=== PATIENT | female | born 1930 | race Caucasian/White ===

== ENCOUNTER 2017-10-09 12:13 | Inpatient (IN) ==
[2017-10-09] MEDS ORDERED: SALINE FLUSH 10ml SYRINGE IVF PRN (12:34)
--- NOTE | 2017-10-09 12:36 | Emergency Department Report ---
General Adult HPI - General Chief complaint: Upper Respiratory Infection Stated complaint: cough fever unresponsive Time Seen by Provider: 10/09/17 12:33 Source: other ([place] Staff / Records) Limitations: altered mental status - History of Present Illness HPI narrative: 87-year-old female presents to the emergency department with a chief complaint of fever and cough. Patient is responsive only to painful and loud verbal stimuli upon arrival to the emergency department. Accu-Chek is obtained and patient's blood glucose is 52 mg/dL. Patient is protecting her own airway. Gag reflex is intact. History is obtained from the snf staff and records. History is limited due to the medical condition of the patient. - Related Data Home Medications Medication Instructions Recorded Confirmed Atorvastatin [Lipitor] 40 mg PO HS #0 06/18/10 10/09/17 Levothyroxine Tab [Synthroid] 100 mcg PO ACB #0 06/18/10 10/09/17 Gabapentin 300 mg PO HS #0 11/26/15 10/09/17 hydroCHLOROthiazide 25 mg PO DAILY #0 11/26/15 10/09/17 [Hydrochlorothiazide] Acetaminophen 650 mg PO Q4H PRN #0 tab 12/12/15 10/09/17 Insulin Lispro [HumaLOG] 8 unit SQ PRN PRN #0 12/13/15 10/09/17 Dextran 70/Hypromellose 1 drop BOTH EYES PRN PRN #15 ml 02/11/16 10/09/17 [Artificial Tears Eye Drops] Sennosides/Docusate Sodium [Sm 1 tab PO BID #0 tab 02/11/16 10/09/17 Senna-S Tablet] Insulin Glargine,Hum.rec.anlog 62 unit SQ BID #0 vial 07/27/16 10/09/17 [Lantus] Nitroglycerin 0.4 mg SL Q5MIN3 PRN #0 tab 07/27/16 10/09/17 Active Protein 1 packet PO BID 10/09/17 10/09/17 Albuterol/Ipratropium [Duoneb] 3 ml AEROSOL Q4H PRN 10/09/17 10/09/17 Allopurinol [Zyloprim] 100 mg PO DAILY 10/09/17 10/09/17 Budesonide Inhalation [Pulmicort 0.5 mg INH PRN PRN 10/09/17 10/09/17 Inhalation] CALCIUM CARBONATE Chewable [Tums] 500 mg PO Q4H PRN 10/09/17 10/09/17 Cholecalciferol [Vit. D-3] 1,000 unit PO DAILY 10/09/17 10/09/17 Duloxetine HCl 30 mg PO DAILY 10/09/17 10/09/17 Fruit Fiber 30 ml PO DAILY 10/09/17 10/09/17 Furosemide [Lasix] 40 mg PO DAILY 10/09/17 10/09/17 Glucagon [Glucagen] 1 mg IM PRN PRN 10/09/17 10/09/17 Hydrocodone/APAP 7.5/325 [[place] 1 tab PO Q6H PRN 10/09/17 10/09/17 7.5/325] Insulin Lispro [HumaLOG] 60 unit SQ TIDWM 10/09/17 10/09/17 Losartan Potassium [Cozaar] 50 mg PO DAILY 10/09/17 10/09/17 Magnesium Hydroxide [Milk of 30 ml PO DAILY PRN 10/09/17 10/09/17 Magnesia] Metoprolol Tartrate [Lopressor] 25 mg PO BIDWM 10/09/17 10/09/17 Multivitamin [One Daily] 1 tab PO DAILY 10/09/17 10/09/17 Potassium Chloride [Klor-Con M20] 20 meq PO BID 10/09/17 10/09/17 PredniSONE [Deltasone] 5 mg PO BID 10/09/17 10/09/17 Psyllium [Metamucil] 6 gm PO HS 10/09/17 10/09/17 Rivaroxaban [Xarelto] 20 mg PO DAILY 10/09/17 10/09/17 Sodium Chloride [Saline Nasal Mist] 1 spray VANNESSA PRN PRN 10/09/17 10/09/17 Thiamine [Vitamin B-1] 100 mg PO DAILY 10/09/17 10/09/17 Trifluoperazine [Stelazine] 0.5 mg PO DAILY 10/09/17 10/09/17 guaiFENesin [Guaifenesin] 200 mg PO QID PRN 10/09/17 10/09/17 Allergies Allergy/AdvReac Type Severity Reaction Status Date / Time Sulfa (Sulfonamide Allergy Intermediate RASH Verified 10/09/17 12:29 Antibiotics) JUNE Inhibitors Allergy Unknown Verified 10/09/17 12:29 ARB-Angiotensin Receptor Allergy Unknown Verified 10/09/17 12:29 Antagonist Review of Systems Limitations: ROS unobtainable due to patient's medical condition PFS Patient Stated Medical History Congestive Heart Failure Yes Coronary Artery Disease Yes Hypertension Yes Asthma Yes Diabetes Mellitus Type 2 Yes Osteoarthritis Yes (1) HTN (hypertension) (2) Hypothyroid (3) Anxiety (4) Chronic kidney disease (CKD) Permanent Comment: stage 3 Last Edited By: Gray Spence on Nov 27, 2015 09:23 (5) Closed fracture of right patella (6) Diabetes Surgical History: Right TKA 06/18/2010 Family History: Reviewed and Noncontributory. - Social History Smoking status: Never smoker Substance use type: does not use Alcohol intake frequency: does not drink Physical Exam - Limitations Limitations: altered mental status - General General appearance: in no apparent distress, obtunded (sponsored to loud verbal stimuli or painful stimuli. Meaningful speech is present with loud verbal stimuli. Maintaining own airway. Gag reflex intact.) - Normal Exams: Head:: Normocephalic without trauma Eyes:: Pupils are PERRLA w/ EOMI, No scleral icterus, irritation, or foreign bodies noted ENMT:: No facial trauma, nasal exudates, pharyngeal erythema, or exudates are noted Neck:: Full range of motion, without adenopathy, JVD, bruits or thyromegaly Chest/Respirations:: Clear all zhong (bilateral rhonchi.), with good airflow, and symmetry bilaterally Cardiovascular:: Regular rate and rhythm, without murmur or gallop, Pulses 2+ all extremities, capillary refill, <2 seconds all extremities Abdomen:: Bowel sounds positive, soft, non-tender, non-distended, no hepatosplenomegaly, masses or bruits noted Lymphatic:: No lymphadenopathy, or lymphedema noted Musculoskeletal:: No tenderness, or deformity noted, good range of motion, all extremities Integumentary:: No rashes, hives, or bruising noted, hair and nails, without abnormality Course Vital Signs Temperature 99.8 F 10/09/17 12:20 Pulse Rate 118 H 10/09/17 12:20 Respiratory Rate 24 10/09/17 12:20 Blood Pressure 118/56 10/09/17 12:20 Pulse Oximetry 88 L 10/09/17 12:20 Temperature 97.9 F 10/09/17 15:49 Pulse Rate 114 H 10/09/17 15:49 Respiratory Rate 24 10/09/17 15:49 Blood Pressure 132/65 10/09/17 15:49 Pulse Oximetry 97 10/09/17 15:49 Medical Decision Making - MDM Narrative Medical decision making narrative: Patient was given 1 amp of D50 intravenously upon arrival which improved her blood glucose to 143 mg/dL. Patient is more responsive and responds to loud verbal stimuli opens her eyes and has meaningful speech. Patient is still altered. There is no obvious focal deficit. Patient is given 500 mL normal saline intravenously times one. Septic / AMS workup is initiated and completed. Patient was given 1 g of cefepime intravenously for broad-spectrum coverage. She is discussed with the hospitalist Dr. Manzo and admitted to her service in improved condition. Family arrives at bedside. Family is in agreement with the current plan of management. Patient is a do not resuscitate. Patient is admitted to the service of the hospitalist in improved condition. Family is in agreement with the current plan of management. No further orders from accepting physician who is in agreement with the current plan of management. Cefepime 1 g iv was ordered at 1403 when sepsis was considered. Patient was never hypotensive and did not have a lactic acid greater than 4 in the emergency department. - Differential Diagnosis hypoglycemia, UTI, metabolic derangement, pneumonia, influenza - Lab Data Result diagrams: 10/09/17 12:37 10/09/17 12:37 Lab Results 10/09/17 10/09/17 10/09/17 Range/Units 12:37 12:37 12:37 WBC 17.5 H (4.5-11.0) T/MM3 RBC 3.44 L (4.00-5.20) M/MM3 Hgb 10.1 L (12-16) GM/DL Hct 33.4 L (36-46) % MCV 97.1 (80-100) UM3 MCH 29.4 (26-34) UUG MCHC 30.2 L (31-37) GM/DL RDW Std Deviation 53.1 H (36.9-50.2) FL Plt Count 222 (130-400) T/MM3 MPV 12.3 (9.4-12.4) UM3 Immature Gran % (Auto) Not performed Neut % (Auto) Not performed Lymph % (Auto) Not performed [place] % (Auto) Not performed Eos % (Auto) Not performed Baso % (Auto) Not performed Neut # (Auto) Not performed Lymph # (Auto) Not performed [place] # (Auto) Not performed Eos # (Auto) Not performed Baso # (Auto) Not performed Abs Immat Gran (auto) Not performed Neutrophils % (Manual) 77.0 H (33-66) % Band Neutrophils % 2.0 (0-6) % Lymphocytes % (Manual) 19.0 L (23-45) % Monocytes % (Manual) 2.0 (0-9.0) % Neutrophils # (Manual) 13.5 H (1.8-7.7) T/MM3 Band Neutrophils # 0.4 T/MM3 Lymphocytes # (Manual) 3.3 (1-4.8) T/MM3 Monocytes # (Manual) 0.4 (0-0.8) T/MM3 Poikilocytosis 1+ Anisocytosis 1+ RBC Morph Comment Abnormal Turbidity < 20 (0-20) Sodium 151 H (134-144) MEQ/L Potassium 5.4 H (3.6-5) MEQ/L Chloride 116 H (98-107) MEQ/L Carbon Dioxide 23 (22-30) MEQ/L Anion Gap 12 (5-15) MEQ/L BUN 68.0 H* (7-17) MG/DL Creatinine 2.1 H (0.7-1.2) MG/DL GFR Calculation 22 BUN/Creatinine Ratio 32 H (6-26) RATIO Glucose 54 L (65-110) MG/DL Calculated Osmolality 308 H (261-280) MOSM/KG Calcium 9.7 (8.4-10.2) MG/DL Total Bilirubin 0.50 (0.20-1.30) MG/DL Icterus Index < 2 (0-7) AST 55 H (14-36) U/L ALT 49 (9-52) U/L Alkaline Phosphatase 108 (38-126) U/L Troponin I 0.044 (0-0.12) ng/ml Total Protein 7.5 (6.3-8.2) G/DL Albumin 3.8 (3.5-5.0) G/DL Globulin 3.7 H (2.4-3.6) G/DL Albumin/Globulin Ratio 1.0 L (1.1-2.2) RATIO Plasma Lactate 1.8 (0.6-2.2) MMOL/L Procalcitonin NG/ML Specimen Hemolysis < 15 (0-25) Ur Collection Type Urine Color (YELLOW) Urine Clarity Urine pH (5.0-8.0) Ur Specific Almo (1.015-1.025) Urine Protein (NEGATIVE) Urine Glucose (UA) (NEGATIVE) Urine Ketones (NEGATIVE) Urine Occult Blood (NEGATIVE) Urine Nitrate (NEGATIVE) Urine Bilirubin (NEGATIVE) Urine Urobilinogen (NORMAL) EU/DL Ur Leukocyte Esterase (NEGATIVE) Urine RBC (0-3) /HPF Urine WBC (0-5) /HPF Ur Squamous Epith Cells Amorphous Sediment Urine Bacteria (NEGATIVE) Urine Mucus Ur Culture Indicated? Influenza Type A (PCR) (Negative) Influenza Type B (PCR) (Negative) 10/09/17 10/09/17 10/09/17 Range/Units 12:37 12:57 13:42 WBC (4.5-11.0) T/MM3 RBC (4.00-5.20) M/MM3 Hgb (12-16) GM/DL Hct (36-46) % MCV (80-100) UM3 MCH (26-34) UUG MCHC (31-37) GM/DL RDW Std Deviation (36.9-50.2) FL Plt Count (130-400) T/MM3 MPV (9.4-12.4) UM3 Immature Gran % (Auto) Neut % (Auto) Lymph % (Auto) [place] % (Auto) Eos % (Auto) Baso % (Auto) Neut # (Auto) Lymph # (Auto) [place] # (Auto) Eos # (Auto) Baso # (Auto) Abs Immat Gran (auto) Neutrophils % (Manual) (33-66) % Band Neutrophils % (0-6) % Lymphocytes % (Manual) (23-45) % Monocytes % (Manual) (0-9.0) % Neutrophils # (Manual) (1.8-7.7) T/MM3 Band Neutrophils # T/MM3 Lymphocytes # (Manual) (1-4.8) T/MM3 Monocytes # (Manual) (0-0.8) T/MM3 Poikilocytosis Anisocytosis RBC Morph Comment Turbidity (0-20) Sodium (134-144) MEQ/L Potassium (3.6-5) MEQ/L Chloride (98-107) MEQ/L Carbon Dioxide (22-30) MEQ/L Anion Gap (5-15) MEQ/L BUN (7-17) MG/DL Creatinine (0.7-1.2) MG/DL GFR Calculation BUN/Creatinine Ratio (6-26) RATIO Glucose (65-110) MG/DL Calculated Osmolality (261-280) MOSM/KG Calcium (8.4-10.2) MG/DL Total Bilirubin (0.20-1.30) MG/DL Icterus Index (0-7) AST (14-36) U/L ALT (9-52) U/L Alkaline Phosphatase (38-126) U/L Troponin I (0-0.12) ng/ml Total Protein (6.3-8.2) G/DL Albumin (3.5-5.0) G/DL Globulin (2.4-3.6) G/DL Albumin/Globulin Ratio (1.1-2.2) RATIO Plasma Lactate (0.6-2.2) MMOL/L Procalcitonin 0.42 NG/ML Specimen Hemolysis (0-25) Ur Collection Type Urine, catheter Urine Color Yellow (YELLOW) Urine Clarity Clear Urine pH 5.5 (5.0-8.0) Ur Specific [place]mo 1.020 (1.015-1.025) Urine Protein 1+ A (NEGATIVE) Urine Glucose (UA) Negative (NEGATIVE) Urine Ketones Negative (NEGATIVE) Urine Occult Blood Negative (NEGATIVE) Urine Nitrate Negative (NEGATIVE) Urine Bilirubin Negative (NEGATIVE) Urine Urobilinogen 0.2 (NORMAL) EU/DL Ur Leukocyte Esterase Negative (NEGATIVE) Urine RBC 0-1 (0-3) /HPF Urine WBC 0-1 (0-5) /HPF Ur Squamous Epith Cells 0-5 Amorphous Sediment Few Urine Bacteria 1+ H (NEGATIVE) Urine Mucus Present Ur Culture Indicated? Cult not indicated Influenza Type A (PCR) Negative (Negative) Influenza Type B (PCR) Negative (Negative) - Radiology Data CT head: No acute processes. Chest x-ray: No acute processes. - EKG Data EKG #1 EKG results narrative: Sinus tachycardia. 111 bpm. No STEMI. Nonspecific ST changes. Disposition Clinical Impression: Altered mental status Qualifiers: Altered mental status type: unspecified Qualified Code(s): R41.82 - Altered mental status, unspecified [place]: [place] [facility] [place] Condition: Stable Time of Disposition: 14:00 (Admit. Dr. Manzo. ) - Seen By: physician
[2017-10-09] MEDS ORDERED: DEXTROSE 50% INJ 50ml VIAL IV ONE (12:42)
--- OUTSIDE RECORDS SUMMARY | 2017-10-09 12:48 | External Medical Summary | Continuity of Care Document ---
:1930 Demographics x Preferred Language Unknown Marital Status Unknown Mormonism Affiliation Unknown Race Unknown Ethnic Group Unknown Author Organization [facility] Allergies There is no data. Medications There is no data. Problems Date Dx Coded Attending Type Code Diagnosis Diagnosed By 01/15/2016 R05 MARC Rodriguez MD 01/18/2016 R05 Ángela MORAES MD, MARC 01/23/2016 R05 Cough TERI MÉNDEZ MD 01/23/2016 R09.82 Postnasal drip TERI MÉNDEZ MD 01/23/2016 R05 Cough Lindsey Ch 01/23/2016 R09.82 Postnasal drip Dima, Lindsey Procedures Code Description [place] [address] Subsequent TERI MÉNDEZ MD 02/19/2016 hospital care, per day, for the evaluation [place], [place] [address] Subsequent Lindsey Ch 02/19/2016 hospital care, per day, for the evaluation [place] [address] Initial ALEISHA DUVALL, MARC 02/26/2016 hospital care, per day, for the evaluation and management of a patient, which requires these [id number] Subsequent ALEISHA DUVALL, MARC 02/26/2016 hospital care, per day, for the evaluation [place], [place] [address] Subsequent MARC MORAES MD 02/26/2016 hospital care, per day, for the evaluation [place], [place] [address] Subsequent TERI MÉNDEZ MD 02/26/2016 hospital care, per day, for the evaluation [place] [address] Subsequent Lindsey Ch 02/26/2016 hospital care, per day, for the evaluation and management of a patient, which requires at Results There is no data. Encounters ACCT No. Visit Discharge Status Pt. Type Provider Facility Loc./Unit Complaint Date/Time [id number] 02/25/2016 02/25/2016 CLS Outpatient 15:32:00 23:59:59
--- NOTE | 2017-10-09 13:11 | CT Scan Report ---
Indication: AMS PROCEDURE: CT head/brain wo con: Encounter: Initial Comparison: None Technique: Axial CT images through the head were performed without contrast. Iterative Reconstruction dose reducing technique was utilized. FINDINGS: Mild generalized atrophy. The ventricles are of normal size, shape, and contour for the patient's age. Chronic appearing left caudate lacunar infarct. There are scattered areas of low attenuation in the white matter which most likely represent changes from chronic microvascular ischemia. The brainstem, cerebellum, and cerebral hemispheres otherwise have a normal morphology and CT attenuation. There is no evidence of midline displacement. No hemorrhage, signs of acute territorial stroke, mass effect, mass lesions, or edema is evident. The visualized portions of the skull base, midface, and calvarium demonstrate no abnormality. Sinus disease with air-fluid level in the left sphenoid sinus.. The tympanic and mastoid cavities appear normal. IMPRESSION: No acute intracranial abnormality or hemorrhage. Possible acute sinusitis. .
--- NOTE | 2017-10-09 13:14 | XRay Report ---
Indication: cough PROCEDURE: XR chest 1V: Encounter: Initial Comparison: July 27, 2016 Findings: The lungs are stable in appearance without new focal airspace consolidation. There is no pleural effusion or pneumothorax. The heart size, pulmonary vascularity and mediastinal contours are unchanged. IMPRESSION: Stable appearance of the chest without acute cardiopulmonary disease. .
[2017-10-09] MEDS ORDERED: NS 1,000 ML IV ONE (13:23)
[2017-10-09] MEDS ORDERED: CEFEPIME 1 GM in NS 100 ML IV ONE (14:03)
--- NOTE | 2017-10-09 15:13 | History & Physical Report ---
History of Present Illness Date: 10/09/17 Chief complaint: decreased LOC, cough HPI: Nahed is an 87-year-old resident at [facility]. For the past few days she has been less responsive and has had a cough. Today, when patient was mostly unresponsive, EMS was called and patient was brought to [facility] emergency room. Nursing staff reports there has been a lot of respiratory illness at the home. Daughter reports patient was sick the end of August, but after several days of antibiotics, she was much better. Daughter reports that definitely over the past 2 days her mother has been less and less responsive. On admission to ER, patient was found to be hypoxic with oxygen sat of 88% on room air. She was tachycardic and had a fever 99.8. Head CT showed no acute intracranial abnormality or hemorrhage, but did show possible acute sinusitis. Chest x-ray was essentially negative, no sign of pneumonia or pulmonary congestion. Her white blood cell count was elevated at 17.5 with 2% bands. Sodium is elevated at 151 and potassium is elevated at 5.4. She has chronic kidney disease, but creatinine is elevated above baseline at 2.1. (Baseline approximately 1.3.) Negative for influenza. Urinalysis essentially negative. Following evaluation in the emergency room, hospitalist service was contacted and patient was admitted inpatient to the CCU. 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 Rivers-12/04), cholecystectomy, umbilical hernia repair Family History: Father- of [place] Mother-. Heart disease 2 sisters with Alzheimer's Sister-breast cancer Brother-[place] Family History Updates: Updated - Social History Smoking status: Never smoker Substance use type: does not use Alcohol intake frequency: does not drink Housing: retirement ([facility] - full care) Current occupational status: retired Previous occupational history: "farm " Social history: Patient is . Has been at [facility] since November 2015 following the patellar fracture. DPLAURA-H is her daughter, Miranda Gomez Dr Rizvi - PCP Medications Home Medications Medication Instructions Recorded Confirmed Type Atorvastatin [Lipitor] 40 mg PO HS #0 06/18/10 10/09/17 History Levothyroxine Tab [Synthroid] 100 mcg PO ACB #0 06/18/10 10/09/17 History Gabapentin 300 mg PO HS #0 11/26/15 10/09/17 History hydroCHLOROthiazide 25 mg PO DAILY #0 11/26/15 10/09/17 History [Hydrochlorothiazide] Acetaminophen 650 mg PO Q4H PRN #0 tab 12/12/15 10/09/17 History Insulin Lispro [HumaLOG] 8 unit SQ PRN PRN #0 12/13/15 10/09/17 History Dextran 70/Hypromellose 1 drop BOTH EYES PRN PRN #15 ml 02/11/16 10/09/17 History [Artificial Tears Eye Drops] Sennosides/Docusate Sodium [Sm 1 tab PO BID #0 tab 02/11/16 10/09/17 History Senna-S Tablet] Insulin Glargine,Hum.rec.anlog 62 unit SQ BID #0 vial 07/27/16 10/09/17 History [Lantus] Nitroglycerin 0.4 mg SL Q5MIN3 PRN #0 tab 07/27/16 10/09/17 History Active Protein 1 packet PO BID 10/09/17 10/09/17 History Albuterol/Ipratropium [Duoneb] 3 ml AEROSOL Q4H PRN 10/09/17 10/09/17 History Allopurinol [Zyloprim] 100 mg PO DAILY 10/09/17 10/09/17 History Budesonide Inhalation [Pulmicort 0.5 mg INH PRN PRN 10/09/17 10/09/17 History Inhalation] CALCIUM CARBONATE Chewable [Tums] 500 mg PO Q4H PRN 10/09/17 10/09/17 History Cholecalciferol [Vit. D-3] 1,000 unit PO DAILY 10/09/17 10/09/17 History Duloxetine HCl 30 mg PO DAILY 10/09/17 10/09/17 History Fruit Fiber 30 ml PO DAILY 10/09/17 10/09/17 History Furosemide [Lasix] 40 mg PO DAILY 10/09/17 10/09/17 History Glucagon [Glucagen] 1 mg IM PRN PRN 10/09/17 10/09/17 History Hydrocodone/APAP 7.5/325 [[place] 1 tab PO Q6H PRN 10/09/17 10/09/17 History 7.5/325] Insulin Lispro [HumaLOG] 60 unit SQ TIDWM 10/09/17 10/09/17 History Losartan Potassium [Cozaar] 50 mg PO DAILY 10/09/17 10/09/17 History Magnesium Hydroxide [Milk of 30 ml PO DAILY PRN 10/09/17 10/09/17 History Magnesia] Metoprolol Tartrate [Lopressor] 25 mg PO BIDWM 10/09/17 10/09/17 History Multivitamin [One Daily] 1 tab PO DAILY 10/09/17 10/09/17 History Potassium Chloride [Klor-Con M20] 20 meq PO BID 10/09/17 10/09/17 History PredniSONE [Deltasone] 5 mg PO BID 10/09/17 10/09/17 History Psyllium [Metamucil] 6 gm PO HS 10/09/17 10/09/17 History Rivaroxaban [Xarelto] 20 mg PO DAILY 10/09/17 10/09/17 History Sodium Chloride [Saline Nasal Mist] 1 spray VANNESSA PRN PRN 10/09/17 10/09/17 History Thiamine [Vitamin B-1] 100 mg PO DAILY 10/09/17 10/09/17 History Trifluoperazine [Stelazine] 0.5 mg PO DAILY 10/09/17 10/09/17 History guaiFENesin [Guaifenesin] 200 mg PO QID PRN 10/09/17 10/09/17 History Allergies Allergy/AdvReac Type Severity Reaction Status Date / Time Sulfa (Sulfonamide Allergy Intermediate RASH Verified 10/09/17 12:29 Antibiotics) JUNE Inhibitors Allergy Unknown Verified 10/09/17 12:29 ARB-Angiotensin Receptor Allergy Unknown Verified 10/09/17 12:29 Antagonist Exam Vital Signs: Temperature 99.8 F 10/09/17 12:20 Pulse Rate 106 H 10/09/17 14:30 Respiratory Rate 22 10/09/17 14:30 Blood Pressure 123/89 10/09/17 14:30 Pulse Oximetry 97 10/09/17 14:30 Height/Weight/BMI: Height 1.63 m Weight 91.7 kg - Constitutional Present: no acute distress, well nourished, well developed, obese, other - Routine HEENT Exam Head: Present: normocephalic (unresponsive), atraumatic ENT: Present: external ear normal Comments: Has some yellow mattering to the inner canthus of each eye - Routine Neck Exam Present: supple. Absent: lymphadenopathy, thyromegaly - Routine Respiratory Exam Present: crackles (diffuse-anteriorly) - Routine Cardiovascular Exam Present: RRR. Absent: murmur - Routine Abdominal Exam Present: normoactive bowel sounds, non distended, firm, surgical scars ( umbilical hernia scar and gallbladder laparoscopic scars). Absent: tenderness - Routine Extremities Exam Present: edema (trace), pulses intact, normal capillary refill - Routine Skin Exam Present: dry, warm Comments: Pressure wound left heel, covered with dressing. Daily scan and bruising to the arms bilaterally. Skin discoloration to the right knee with patellar deformity - Routine Neurological Exam Present: altered mental status. Absent: alert, oriented X3 - Routine Psychiatric Exam Present: unable to assess Results - Labs CBC & Chem 7: 10/09/17 12:37 10/09/17 17:27 Labs: Laboratory Tests 10/09/17 10/09/17 10/09/17 12:37 12:37 12:37 AST 55 H ALT 49 Troponin I 0.044 Plasma Lactate 1.8 Procalcitonin 0.42 Laboratory Tests 10/09/17 12:57 Influenza Type A (PCR) Negative Influenza Type B (PCR) Negative Laboratory Tests 10/09/17 13:42 Ur Collection Type Urine, catheter Urine Color Yellow Urine Clarity Clear Urine pH 5.5 Ur Specific [place] 1.020 Urine Protein 1+ A Urine Glucose (UA) Negative Urine Ketones Negative Urine Occult Blood Negative Urine Nitrate Negative Urine Bilirubin Negative Urine Urobilinogen 0.2 Ur Leukocyte Esterase Negative Urine RBC 0-1 Urine WBC 0-1 Ur Squamous Epith Cells 0-5 Amorphous Sediment Few Urine Bacteria 1+ H Urine Mucus Present Microbiology Results: Microbiology 10/09/17 13:16 Peripheral/Iv Start Blood Culture - Preliminary Culture Initiated - Results Pending 10/09/17 12:37 Peripheral/Iv Start Blood Culture - Preliminary Culture Initiated - Results Pending - Echocardiogram Echocardiogram: Sinus tach with rate of 111 - Imaging and Cardiology Chest x-ray Additional comments: Date of Exam: 10/09/17 Indication: cough PROCEDURE: XR chest 1V: Findings: The lungs are stable in appearance without new focal airspace consolidation. There is no pleural effusion or pneumothorax. The heart size, pulmonary vascularity and mediastinal contours are unchanged. IMPRESSION: Stable appearance of the chest without acute cardiopulmonary disease. CT scan - head Additional comments: 10/09/17 Indication: AMS PROCEDURE: CT head/brain wo con: FINDINGS: Mild generalized atrophy. The ventricles are of normal size, shape, and contour for the patient's age. Chronic appearing left caudate lacunar infarct. There are scattered areas of low attenuation in the white matter which most likely represent changes from chronic microvascular ischemia. The brainstem, cerebellum, and cerebral hemispheres otherwise have a normal morphology and CT attenuation. There is no evidence of midline displacement. No hemorrhage, signs of acute territorial stroke, mass effect, mass lesions, or edema is evident. The visualized portions of the skull base, midface, and calvarium demonstrate no abnormality. Sinus disease with air-fluid level in the left sphenoid sinus.. The tympanic and mastoid cavities appear normal. IMPRESSION: No acute intracranial abnormality or hemorrhage. Possible acute sinusitis. Assessment and Plan Assessment and Plan: Assessment Acute encephalopathy Severe sepsis: SIRS criteria leukocytosis (17.5), tachycardia (118), tachypnea , Cr>2. Possible pulmonary or sinus source of infection.-RLL 10/09/17 Acute respiratory failure with hypoxia Dehydration Hyperkalemia (5.4) present on admission Hypernatremia (151) present on admission Acute kidney injury w/ CKD Hypertension Diabetes mellitus, type II-on chronic insulin History of Beverley king (2016)-chronic anticoagulation (Xarelto) Normocytic anemia, otherwise unspecified Hypothyroidism Anxiety Osteoarthritis Plan Admit, inpatient status to the medical floor under the hospitalist service, Dr. Beal attending. Given her altered mental status, hypoxia, and multiple comorbidities expect her stay to exceed 2 overnights. Cefepime 1 g IV was given in the ER. Respiratory panel is pending. Given her elevated white count and findings of sinusitis on CT, consider further atbx - to be determined by Dr. Beal. Repeat BMP at 2000 to monitor electrolytes. CBC and BMP in am. Received 1 L of normal saline in ER. In light of her hypernatremia, will start half normal saline to run at 150 cc/h. Hold home insulin given she is not eating. Sliding scale. Accu-Cheks. Daughter reports patient has DO NOT RESUSCITATE CODE STATUS. On dismissal, patient will return to [facility] and care and Dr. Rizvi will resume care. DVT Prophylaxis: SCD's, Xarelto Resuscitation Status: Do Not Resuscitate - Physician Narrative Physician: Alisa Beal MD Narrative: Date: 10/09/17 Time: 2209 I have independently evaluated and examined this patient. I reviewed the chart, the patient's history, and the DESIGN STUDIO CONSULTANT/PA's documented findings as above. We discussed and formulated the assessment and plan as above with additions as below: Mrs. Luis was seen with her daughter/EDMOND Jean at the bedside. Miranda reports that at baseline the patient is demented but typically recognizes family members and is able to carry on a conversation. She can feed herself but cannot dress herself or ambulate. She is wheelchair bound and requires a Lotus lift to get in and out of bed. For several days the patient has required assistance feeding herself and had decreased oral intake followed by increased confusion evolving to being obtunded on arrival in the emergency room. Cough has been reported. Miranda reports some low-grade fevers; she is not aware of nausea, vomiting, or diarrhea. On examination Nahed is responsive to examination but when her name is called and chest rubbed gently (did not require sternal rub) she opens her eyes and mumbles a little bit and then falls back to sleep Respirations are nonlabored with diminished airflow but breath sounds are grossly clear Cardiac rhythm is regular and tachycardic Abdomen is soft and nontender There is increased muscle tone in all 4 extremities and attempts to flex or extend the upper extremities leads to tremulousness/clonus; there is similar increased muscle tone in the neck but I can flex and rotate the neck in a limited range-neck tone is consistent with the tone in the extremities. Skin tents and there is no peripheral edema CT head reviewed by myself-chronic ischemic changes present, no acute intracranial pathology other than fluid/fluid level in the left sphenoid suggesting sinusitis Chest x-ray unremarkable Urinalysis unremarkable Respiratory viral panel negative Multiple SIRS/sepsis criteria present including leukocytosis, tachypnea, tachycardia, and organ dysfunction as evidenced by elevated creatinine ( although creatinine is more likely the result of severe dehydration) Hemoglobin down compared to July 2016-interval values not available Lactic acid and procalcitonin are reassuringly normal. Patient is clinically dehydrated as evidenced by hypernatremia and skin tone. Continue fluid replacement, monitor electrolytes, and assess mental status as electrolytes normalized. Unclear at present if renal insufficiency is all due to dehydration or combination of dehydration and sepsis. Patient will be empirically treated with cefepime to cover the sinuses possible pulmonary infection although I think lung infection is less likely based on radiographic findings. Lumbar puncture could be considered but the patient took Xarelto yesterday and the procedure would be high risk. This was discussed with patient' s daughter and we have elected to treat empirically at this time and reevaluate tomorrow. Similarly I considered adding vancomycin but improved holding off due to renal failure and lack of definitive evidence of an infection requiring expanded coverage. The patient is critically ill; family wishes supportive care without interventions or heroics. 40 min in pt care at bedside and on unit. d/w Dr. Manzo. Sepsis Assessment - Evaluation SIRS Criteria: pulse > 90 beats/minute, WBC > 12,000, RR > 20 Severe Sepsis: Creatinine >2.0 mg/dL or 0.5 mg/dL above baseline Hospital Course Summary Disclaimer: The visit summary below is not to be considered part of the above Progress Note. Hospital Course: Assessment Acute respiratory failure with hypoxia Acute encephalopathy Dehydration Hyperkalemia (5.4) present on admission Hypernatremia (151) present on admission Possible sepsis: SIRS criteria leukocytosis (17.5) and tachycardia (118). Possible pulmonary or sinus source of infection. Acute kidney injury w/ CKD Hypertension Diabetes mellitus, type II-on chronic insulin History of Beverley king (2015)-chronic anticoagulation (Xarelto) Normocytic anemia, otherwise unspecified Hypothyroidism Anxiety Osteoarthritis 10/09/17 - Hospital admission Admit, inpatient status to the medical floor under the hospitalist service, Dr. Beal attending. Given her altered mental status, hypoxia, and multiple comorbidities expect her stay to exceed 2 overnights. Cefepime 1 g IV was given in the ER-continue bid (adjusted for renal dysfct). Respiratory panel negative. Received 1 L of normal saline in ER. In light of her hypernatremia, will start half normal saline to run at 150 cc/h. Hold home insulin given she is not eating. Sliding scale. Accu-Cheks. Daughter reports patient has DO NOT RESUSCITATE CODE STATUS. On dismissal, patient will return to [facility] and care and Dr. Rizvi will resume care.
[2017-10-09] MEDS: 1/2 NS 1,000 ML IV SCH ×2 (16:29→23:07)
[2017-10-09] MEDS: D5-1/2NS 1,000 ML IV SCH (20:57)
[2017-10-09] MEDS ORDERED: NS 1,000 ML IV SCH (22:30)
[2017-10-10] MEDS: CEFEPIME 1 GM in NS 100 ML IV SCH ×2 (02:37→17:01)
[2017-10-10] MEDS ORDERED: D5NS 1,000 ML IV SCH (03:30)
[2017-10-10] MEDS: D5-1/2NS 1,000 ML IV SCH ×3 (04:16→22:46)
[2017-10-10] MEDS: INSULIN ASPART 100unit/ml INJECTION SQ PRN ×2 (06:25→20:59)
--- NOTE | 2017-10-10 15:21 | Progress Note ---
- Date 10/10/17 Subjective: Remains encephalopathic and somnolent this morning. Is currently on cefepime; WBC improved significantly overnight and renal function improving. Daughter at bedside; discussed possible causes of her presentation, underlying dementia, concern for aspiration chronically and higher risk of delirium due to dementia. No fevers overnight. Objective Vital signs: Temperature 98.5 F 10/10/17 08:28 Pulse Rate 110 H 10/10/17 08:28 Respiratory Rate 24 10/10/17 08:28 Blood Pressure 145/67 H 10/10/17 08:28 Pulse Oximetry 96 10/10/17 08:28 Height/Weight/BMI: Weight 88.6 kg - Constitutional Present: obese, somnolent - Routine HEENT Exam Head: Present: normocephalic, atraumatic Eye: Present: PERRL. Absent: conjunctival icterus ENT: Present: mucous membranes moist Comments: oropharyngeal secretions audible - Routine Respiratory Exam Present: CTA bilaterally. Absent: rhonchi, wheezes, crackles - Routine Cardiovascular Exam Present: RRR - Routine Abdominal Exam Present: soft, non distended - Routine Extremities Exam Present: pulses intact, normal capillary refill. Absent: edema - Routine Skin Exam Present: dry, warm. Absent: rash - Routine Neurological Exam Present: altered mental status - Routine Psychiatric Exam Present: unable to assess Results - Labs CBC & Chem 7: 10/10/17 04:34 10/10/17 14:36 - Imaging and Cardiology Chest x-ray Status: image reviewed by me (with no infiltrate visible; report as above) Additional comments: Date of Exam: 10/09/17 Ordering Provider: Wilson Romeo DO Type of Exam(s): XR chest 1V Reason for Exam(s): cough Indication: cough PROCEDURE: XR chest 1V: Encounter: Initial Comparison: July 27, 2016 Findings: The lungs are stable in appearance without new focal airspace consolidation. There is no pleural effusion or pneumothorax. The heart size, pulmonary vascularity and mediastinal contours are unchanged. IMPRESSION: Stable appearance of the chest without acute cardiopulmonary disease. Assessment and Plan Assessment and Plan: Assessment Acute encephalopathy Advanced dementia per discussion with family Severe sepsis: SIRS criteria leukocytosis (17.5), tachycardia (118), tachypnea , Cr>2. Possible pulmonary or sinus source of infection Acute respiratory failure with hypoxia Dehydration; Na 151 at admit Hyperkalemia (5.4) present on admission, improved with supportive care Hypernatremia (151) present on admission, improving to 147 today Acute kidney injury w/ CKD; cr trending down with IVF administration Hypertension Diabetes mellitus, type II-on chronic insulin History of Beverley osborn (2015)-chronic anticoagulation (Xarelto) Normocytic anemia, otherwise unspecified Hypothyroidism Anxiety Osteoarthritis Plan Continue cefepime and monitor for fevers, clinical changes. May add vancomycin tomorrow if not improved significantly. Given her altered mental status, hypoxia, and multiple comorbidities expect her stay to exceed 2 overnights. Renal function panel, CBC, Mg in AM for surveillance. Change fluids to D51/2NS @ 100 cc/hour. Hold home insulin given she is not eating; use correction scale and accuchecks. Daughter reports patient has DO NOT RESUSCITATE CODE STATUS Follow pending blood cultures Repeat CXR in AM for surveillance now that she has had adequate volume resuscitation DVT Prophylaxis: SCD's Resuscitation Status: Do Not Resuscitate - Physician Narrative Narrative: Date: 10/10/17 Time: 1516 Hospital Course Summary Disclaimer: The visit summary below is not to be considered part of the above Progress Note. Hospital Course: Assessment Acute respiratory failure with hypoxia Acute encephalopathy Dehydration Hyperkalemia (5.4) present on admission Hypernatremia (151) present on admission Possible sepsis: SIRS criteria leukocytosis (17.5) and tachycardia (118). Possible pulmonary or sinus source of infection. Acute kidney injury w/ CKD Hypertension Diabetes mellitus, type II-on chronic insulin History of Beverley osborn (2015)-chronic anticoagulation (Xarelto) Normocytic anemia, otherwise unspecified Hypothyroidism Anxiety Osteoarthritis 10/09/17 - Hospital admission Admit, inpatient status to the medical floor under the hospitalist service, Dr. Beal attending. Given her altered mental status, hypoxia, and multiple comorbidities expect her stay to exceed 2 overnights. Cefepime 1 g IV was given in the ER-continue bid (adjusted for renal dysfct). Respiratory panel negative. Received 1 L of normal saline in ER. In light of her hypernatremia, will start half normal saline to run at 150 cc/h. Hold home insulin given she is not eating. Sliding scale. Accu-Cheks. Daughter reports patient has DO NOT RESUSCITATE CODE STATUS. On dismissal, patient will return to [facility] and Dr. Rizvi will resume care. 10/10/17 Continue cefepime and monitor for fevers, clinical changes. May add vancomycin tomorrow if not improved significantly. Given her altered mental status, hypoxia, and multiple comorbidities expect her stay to exceed 2 overnights. Renal function panel, CBC, Mg in AM for surveillance. Change fluids to D51/2NS @ 100 cc/hour. Hold home insulin given she is not eating; use correction scale and accuchecks. Daughter reports patient has DO NOT RESUSCITATE CODE STATUS Follow pending blood cultures Repeat CXR in AM for surveillance now that she has had adequate volume resuscitation
[2017-10-11] MEDS: CEFEPIME 1 GM in NS 100 ML IV SCH ×2 (01:37→17:00)
[2017-10-11] MEDS: D5-1/2NS 1,000 ML IV SCH (05:52)
[2017-10-11] MEDS: INSULIN ASPART 100unit/ml INJECTION SQ PRN ×3 (05:53→20:24)
[2017-10-11] MEDS ORDERED: VANCOMYCIN - PHARMACY CONSULT MC ONE (08:08)
--- NOTE | 2017-10-11 09:08 | Pharmacy Consult-Antibiotics ---
Pharmacy Consult-Vancomycin - Laboratory Information WBC 7.7 T/MM3 (4.5-11.0) 10/11/17 05:33 BUN 31.0 MG/DL (7-17) H 10/11/17 05:33 Creatinine 1.3 MG/DL (0.7-1.2) H D 10/11/17 05:33 Procalcitonin 0.42 NG/ML 10/09/17 12:37 - Consult Information We will give vancomycin 1.5gm ivpb loading dose now then follow with 1.25gm ivpb q24h. Trough should be around 17 with this dose. We will monitor renal function and adjust vancomycin dose if needed. Thanks
--- NOTE | 2017-10-11 11:23 | XRay Report ---
Indication: hypoxia, dehydration XR chest 1V: Comparison: 10/09/2017 Technique: Single semiupright portable chest Findings: Patient showed slightly heavier left-sided basilar pulmonary markings. Heart, mediastinum and central vascularity are unchanged. The right lung is stable. General changes persist in the spine. Impression: Slight increase in the markings in the left base which could represent some either early infiltrate or atelectasis. .
[2017-10-11] MEDS: 1/2 NS 1,000 ML IV SCH (11:25)
--- NOTE | 2017-10-11 13:39 | Progress Note ---
- Date 10/11/17 Subjective: Opening eyes to voice today, still nonverbal and drifts back to sleep but some improvement. No fevers overnight. Remains on cefepime. Early growth on blood cultures staph positive. Objective Vital signs: Temperature 98.6 F 10/11/17 08:00 Pulse Rate 105 H 10/11/17 08:00 Respiratory Rate 24 10/11/17 08:00 Blood Pressure 153/73 H 10/11/17 08:00 Pulse Oximetry 98 10/11/17 08:00 Height/Weight/BMI: Weight 89.5 kg - Constitutional Present: no acute distress, somnolent - Routine HEENT Exam Head: Present: normocephalic, atraumatic Eye: Present: scleral injection. Absent: conjunctival icterus ENT: Present: mucous membranes moist, oropharynx clear Comments: edema at the lower eyelids with watery discharge - Routine Respiratory Exam Present: decreased breath sounds. Absent: rhonchi, wheezes, crackles - Routine Cardiovascular Exam Present: RRR. Absent: murmur - Routine Abdominal Exam Present: soft, non distended, non tender - Routine Extremities Exam Present: no edema - Routine Skin Exam Present: dry, warm. Absent: rash - Routine Neurological Exam Present: altered mental status - Routine Psychiatric Exam Present: unable to assess Results - Labs CBC & Chem 7: 10/11/17 05:33 10/11/17 05:33 Microbiology Results: Microbiology 10/11/17 08:48 Peripheral/Iv Start Blood Culture - Preliminary Culture Initiated - Results Pending 10/11/17 08:47 Peripheral/Iv Start Blood Culture - Preliminary Culture Initiated - Results Pending - Impressions Date of Exam: 10/11/17 Ordering Provider: Sirisha Conrad Type of Exam(s): XR chest 1V Reason for Exam(s): hypoxia, dehydration Indication: hypoxia, dehydration XR chest 1V: Comparison: 10/09/2017 Technique: Single semiupright portable chest Findings: Patient showed slightly heavier left-sided basilar pulmonary markings. Heart, mediastinum and central vascularity are unchanged. The right lung is stable. General changes persist in the spine. Impression: Slight increase in the markings in the left base which could represent some either early infiltrate or atelectasis. . Assessment and Plan Assessment and Plan: Assessment Acute encephalopathy, likely due to sepsis and underlying dementia Advanced dementia per discussion with family Severe sepsis: SIRS criteria leukocytosis (17.5), tachycardia (118), tachypnea , Cr>2. Possible pulmonary or sinus source of infection. --> prelim blood cultures now staph positive --> Leukocytosis improving with cefepime, afebrile Acute respiratory failure with hypoxia Dehydration; Na 151 at admit--> improved to 146 Hyperkalemia (5.4) present on admission, improved with supportive care Hypernatremia (151) present on admission, improving to 146 today Acute kidney injury w/ CKD; cr trending down with IVF administration; 1.3 today Hypertension Diabetes mellitus, type II-on chronic insulin History of DemarcoJaren (2015)-chronic anticoagulation (Xarelto) Normocytic anemia, otherwise unspecified Hypothyroidism Anxiety Osteoarthritis Plan Continue cefepime and start vancomycin for MRSA coverage although unlikely given improvements with cefepime. Monitor further cultures as resulted; redraw surveillance cultures today Renal function panel, CBC, Mg in AM for surveillance. Change fluids to 1/2NS @ 50 cc/hour and stop dextrose, monitor blood sugars. Hold home insulin given she is not eating; use correction scale and accuchecks Daughter reports patient has DO NOT RESUSCITATE CODE STATUS; discussed that she may improve with time but has many challenges currenlty Discussed with RN, daughter at bedside. DVT Prophylaxis: SCD's Resuscitation Status: Do Not Resuscitate - Physician Narrative Narrative: Date: 10/11/17 Time: 1336 Hospital Course Summary Disclaimer: The visit summary below is not to be considered part of the above Progress Note. Hospital Course: Assessment Acute respiratory failure with hypoxia Acute encephalopathy Dehydration Hyperkalemia (5.4) present on admission Hypernatremia (151) present on admission Possible sepsis: SIRS criteria leukocytosis (17.5) and tachycardia (118). Possible pulmonary or sinus source of infection. Acute kidney injury w/ CKD Hypertension Diabetes mellitus, type II-on chronic insulin History of DemarcoJaren (2015)-chronic anticoagulation (Xarelto) Normocytic anemia, otherwise unspecified Hypothyroidism Anxiety Osteoarthritis 10/09/17 - Hospital admission Admit, inpatient status to the medical floor under the hospitalist service, Dr. Beal attending. Given her altered mental status, hypoxia, and multiple comorbidities expect her stay to exceed 2 overnights. Cefepime 1 g IV was given in the ER-continue bid (adjusted for renal dysfct). Respiratory panel negative. Received 1 L of normal saline in ER. In light of her hypernatremia, will start half normal saline to run at 150 cc/h. Hold home insulin given she is not eating. Sliding scale. Accu-Cheks. Daughter reports patient has DO NOT RESUSCITATE CODE STATUS. On dismissal, patient will return to [facility] and Dr. Rizvi will resume care. 10/10/17 Continue cefepime and monitor for fevers, clinical changes. May add vancomycin tomorrow if not improved significantly. Given her altered mental status, hypoxia, and multiple comorbidities expect her stay to exceed 2 overnights. Renal function panel, CBC, Mg in AM for surveillance. Change fluids to D51/2NS @ 100 cc/hour. Hold home insulin given she is not eating; use correction scale and accuchecks. Daughter reports patient has DO NOT RESUSCITATE CODE STATUS Follow pending blood cultures Repeat CXR in AM for surveillance now that she has had adequate volume resuscitation 10/11/17 Continue cefepime and start vancomycin for MRSA coverage although unlikely given improvements with cefepime. Monitor further cultures as resulted; redraw surveillance cultures today Renal function panel, CBC, Mg in AM for surveillance. Change fluids to 1/2NS @ 50 cc/hour and stop dextrose, monitor blood sugars. Hold home insulin given she is not eating; use correction scale and accuchecks Daughter reports patient has DO NOT RESUSCITATE CODE STATUS; discussed that she may improve with time but has many challenges destiney
[2017-10-12] MEDS: CEFEPIME 1 GM in NS 100 ML IV SCH ×2 (02:52→14:22)
[2017-10-12] MEDS: 1/2 NS 1,000 ML IV SCH ×4 (05:51→18:20)
[2017-10-12] MEDS: INSULIN ASPART 100unit/ml INJECTION SQ PRN ×4 (06:08→22:06)
[2017-10-12] MEDS: MetroNIDAZOLE PB 500 MG/100 ML BAG IV SCH (18:43)
--- NOTE | 2017-10-12 22:08 | Progress Note ---
- Date 10/12/17 Subjective: Mrs. Luis was seen with her daughter at the bedside. Her daughter reports that she is improved and recognize her now and is responding to some questions. She continues to have a cough and nursing reports onset of diarrhea today. Stool study was positive for C. difficile and precautions have been initiated. The patient denied pain but did not provide any additional history. Nursing reported that the patient has been somnolent most of the day and offers nonspecific responses. She remains nothing by mouth. Objective Vital signs: Temperature 98.5 F 10/12/17 16:00 Pulse Rate 98 10/12/17 16:00 Respiratory Rate 20 10/12/17 16:00 Blood Pressure 163/78 H 10/12/17 16:00 Pulse Oximetry 96 -2 L 10/12/17 16:00 I/O 1473/1050 NAD, awake, confused Conjunctiva clear, oral membranes very dry/cracked Respirations are nonlabored with diminished inspiratory effort and decreased breath sounds throughout; breath sounds are slightly coarse at the left base and inspiration triggers cough Regular rhythm, S1-S2 Soft, nontender, obese, diminished bowel sounds Right knee is discolored; no peripheral edema Moving upper extremities Height/Weight/BMI: Weight 87.4 kg Results - Labs CBC & Chem 7: 10/12/17 04:16 10/12/17 04:16 Labs: Magnesium 2.0, phosphorus 2.5 Microbiology Results: Microbiology 10/11/17 08:47 Peripheral/Iv Start Blood Culture - Preliminary No Growth After 1 Day 10/11/17 08:48 Peripheral/Iv Start Blood Culture - Preliminary No Growth After 1 Day 1/2 blood cultures drawn 10/09 positive for coag-negative staph - Imaging and Cardiology Chest x-ray Status: image reviewed by me (10/11-increased markings at the left base, infiltrate versus atelectasis) Assessment and Plan Assessment and Plan: Assessment Acute encephalopathy, likely due to sepsis and underlying dementia Advanced dementia per discussion with family Severe sepsis: SIRS criteria leukocytosis (17.5), tachycardia (118), tachypnea , Cr>2. Possible pulmonary or sinus source of infection. 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 difficile colitis-10/12/17, IV metronidazole started 10/12 Dehydration; Na 151 at admit--> improved to 146 Hyperkalemia (5.4) present on admission, improved with supportive care Hypernatremia (151) present on admission, improving to 146 today Acute kidney injury w/ CKD; cr trending down with IVF administration; 1.3 today Hypertension Diabetes mellitus, type II-on chronic insulin History of Beverley (2015)-chronic anticoagulation (Xarelto) Normocytic anemia, otherwise unspecified Hypothyroidism Anxiety Osteoarthritis Plan Continue cefepime-clinically improving prior to initiation of vancomycin for positive blood culture yesterday. Culture now confirmed to be coag-negative staph, repeat cultures negative after 24+ hours--DC vancomycin. C. difficile colitis identified today-IV metronidazole initiated. Sodium/creatinine up slightly today after rate of fluids decreased yesterday, / NS increased back to 100 mL per hour-continue to monitor electrolytes. Speech therapy to evaluate tomorrow morning to determine if patient can resume oral intake given improvement in mental status. Mental status slowly improving with current treatments. DO NOT RESUSCITATE CODE STATUS; prognosis remains guarded. Discussed with RN, daughter at bedside. Nursing provides supplemental history. - Physician Narrative Narrative: Date: 10/12/17 Time: 2203 Hospital Course Summary Disclaimer: The visit summary below is not to be considered part of the above Progress Note. Hospital Course: Assessment Acute respiratory failure with hypoxia Acute encephalopathy Dehydration Hyperkalemia (5.4) present on admission Hypernatremia (151) present on admission Possible sepsis: SIRS criteria leukocytosis (17.5) and tachycardia (118). Possible pulmonary or sinus source of infection. Acute kidney injury w/ CKD Hypertension Diabetes mellitus, type II-on chronic insulin History of Beverley oneill (2015)-chronic anticoagulation (Xarelto) Normocytic anemia, otherwise unspecified Hypothyroidism Anxiety Osteoarthritis 10/09/17 - Hospital admission Admit, inpatient status to the medical floor under the hospitalist service, Dr. Beal attending. Given her altered mental status, hypoxia, and multiple comorbidities expect her stay to exceed 2 overnights. Cefepime 1 g IV was given in the ER-continue bid (adjusted for renal dysfct). Respiratory panel negative. Received 1 L of normal saline in ER. In light of her hypernatremia, will start half normal saline to run at 150 cc/h. Hold home insulin given she is not eating. Sliding scale. Accu-Cheks. Daughter reports patient has DO NOT RESUSCITATE CODE STATUS. On dismissal, patient will return to [facility] and Dr. Rizvi will resume care. 10/10/17 Continue cefepime and monitor for fevers, clinical changes. May add vancomycin tomorrow if not improved significantly. Given her altered mental status, hypoxia, and multiple comorbidities expect her stay to exceed 2 overnights. Renal function panel, CBC, Mg in AM for surveillance. Change fluids to D51/2NS @ 100 cc/hour. Hold home insulin given she is not eating; use correction scale and accuchecks. Daughter reports patient has DO NOT RESUSCITATE CODE STATUS Follow pending blood cultures Repeat CXR in AM for surveillance now that she has had adequate volume resuscitation 10/11/17 Continue cefepime and start vancomycin for MRSA coverage although unlikely given improvements with cefepime. Monitor further cultures as resulted; redraw surveillance cultures today Renal function panel, CBC, Mg in AM for surveillance. Change fluids to 1/2NS @ 50 cc/hour and stop dextrose, monitor blood sugars. Hold home insulin given she is not eating; use correction scale and accuchecks Daughter reports patient has DO NOT RESUSCITATE CODE STATUS; discussed that she may improve with time but has many challenges destiney 10/12/17 Continue cefepime-clinically improving prior to initiation of vancomycin for positive blood culture yesterday. Culture now confirmed to be coag-negative staph, repeat cultures negative after 24+ hours--DC vancomycin. C. difficile colitis identified today-IV metronidazole initiated. Sodium/creatinine up slightly today after rate of fluids decreased yesterday, 1/ 2 NS increased back to 100 mL per hour-continue to monitor electrolytes. Speech therapy to evaluate tomorrow morning to determine if patient can resume oral intake given improvement in mental status. Mental status slowly improving with current treatments.
[2017-10-13] MEDS: CEFEPIME 1 GM in NS 100 ML IV SCH ×2 (02:22→16:35)
[2017-10-13] MEDS: 1/2 NS 1,000 ML IV SCH ×2 (03:46→16:34)
[2017-10-13] MEDS: MetroNIDAZOLE PB 500 MG/100 ML BAG IV SCH ×3 (03:47→20:17)
[2017-10-13] MEDS: INSULIN ASPART 100unit/ml INJECTION SQ PRN ×3 (06:23→23:34)
--- NOTE | 2017-10-13 21:00 | Progress Note ---
- Date 10/13/17 Subjective: Mrs. Luis was seen with her daughter at the bedside. Her daughter again reports that she is a little more alert and talking a little more today. Speech therapy saw her earlier in the day and did not feel she was safe to swallow due to repetitive wet cough with any oral intake. The patient denies pain or dyspnea but offers no real history. Frequency of stools is decreased per nursing report and the patient has had no fever over the past 24 hours. Objective Vital signs: Temperature 97.6 F 10/13/17 17:00 Pulse Rate 95 10/13/17 17:00 Respiratory Rate 20 10/13/17 17:00 Blood Pressure 150/77 H 10/13/17 17:00 Pulse Oximetry 96 10/13/17 17:00 I/O 1879/1375 Weight 4.3 kg NAD, regards examiner, awake, sparse verbal responses Conjunctiva clear, oral membranes cannot be visualized today Respirations nonlabored, poor inspiratory effort but anterior zhong clear Regular rhythm, S1-S2 Abdomen soft, nontender, obese, diminished bowel sounds Extremities with trace edema 4 Moving upper extremities spontaneously Height/Weight/BMI: Weight 91.7 kg Results - Labs CBC & Chem 7: 10/13/17 04:31 10/13/17 04:31 Labs: S66 B6 L10 M12 E4 Baso2 Microbiology Results: Microbiology 10/11/17 08:47 Peripheral/Iv Start Blood Culture - Preliminary No Growth After 2 Days 10/11/17 08:48 Peripheral/Iv Start Blood Culture - Preliminary No Growth After 2 Days 1/2 blood culture from 10/09 positive for coag-negative staph Assessment and Plan (1) Acute respiratory failure with hypoxia Current visit: Yes Status: Acute Assessment and Plan: Assessment Acute encephalopathy, likely due to sepsis and underlying dementia Advanced dementia per discussion with family Severe sepsis: SIRS criteria leukocytosis (17.5), tachycardia (118), tachypnea , Cr>2. Possible pulmonary or sinus source of infection. 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 difficile colitis-10/12/17, IV metronidazole started 10/12 Dehydration; Na 151 at admit Hyperkalemia (5.4) present on admission, improved Hypernatremia (151) present on admission Acute kidney injury w/ CKD; cr trending down with IVF administration; 1.3 today Dysphasia Hypertension Diabetes mellitus, type II-on chronic insulin History of Beverley oneill (2015)-chronic anticoagulation (Xarelto) Normocytic anemia, otherwise unspecified Hypothyroidism Anxiety Osteoarthritis Plan Continue cefepime-clinically improving prior to initiation of vancomycin for positive blood culture on 10/11. Culture now confirmed to be coag-negative staph, repeat cultures negative after 48+ hours--vancomycin discontinued 10/12. C. difficile colitis identified on 10/12 metronidazole initiated. Sodium/creatinine stable, continue IV fluids with addition of D5. Speech therapy has recommended nothing by mouth-discussed with patient's daughter and granddaughter; continue speech therapy. Long-term options reviewed with patient's daughter-given patient's end-stage dementia she is not interested in feeding tube and I recommended against it. I advised her that pured diet and thickened liquids can be initiated but that recurrent aspiration may still occur and hospice care may be best option. Mental status slowly improving with current treatments. DO NOT RESUSCITATE CODE STATUS; prognosis remains guarded. Nursing provides supplemental history. - Physician Narrative Narrative: Date: 10/13/17 Time: 2056 Hospital Course Summary Disclaimer: The visit summary below is not to be considered part of the above Progress Note. Hospital Course: Assessment Acute respiratory failure with hypoxia Acute encephalopathy Dehydration Hyperkalemia (5.4) present on admission Hypernatremia (151) present on admission Possible sepsis: SIRS criteria leukocytosis (17.5) and tachycardia (118). Possible pulmonary or sinus source of infection. Acute kidney injury w/ CKD Hypertension Diabetes mellitus, type II-on chronic insulin History of Beverley osborn (2015)-chronic anticoagulation (Xarelto) Normocytic anemia, otherwise unspecified Hypothyroidism Anxiety Osteoarthritis 10/09/17 - Hospital admission Admit, inpatient status to the medical floor under the hospitalist service, Dr. Beal attending. Given her altered mental status, hypoxia, and multiple comorbidities expect her stay to exceed 2 overnights. Cefepime 1 g IV was given in the ER-continue bid (adjusted for renal dysfct). Respiratory panel negative. Received 1 L of normal saline in ER. In light of her hypernatremia, will start half normal saline to run at 150 cc/h. Hold home insulin given she is not eating. Sliding scale. Accu-Cheks. Daughter reports patient has DO NOT RESUSCITATE CODE STATUS. On dismissal, patient will return to [facility] and Dr. Rizvi will resume care. 10/10/17 Continue cefepime and monitor for fevers, clinical changes. May add vancomycin tomorrow if not improved significantly. Given her altered mental status, hypoxia, and multiple comorbidities expect her stay to exceed 2 overnights. Renal function panel, CBC, Mg in AM for surveillance. Change fluids to D51/2NS @ 100 cc/hour. Hold home insulin given she is not eating; use correction scale and accuchecks. Daughter reports patient has DO NOT RESUSCITATE CODE STATUS Follow pending blood cultures Repeat CXR in AM for surveillance now that she has had adequate volume resuscitation 10/11/17 Continue cefepime and start vancomycin for MRSA coverage although unlikely given improvements with cefepime. Monitor further cultures as resulted; redraw surveillance cultures today Renal function panel, CBC, Mg in AM for surveillance. Change fluids to 1/2NS @ 50 cc/hour and stop dextrose, monitor blood sugars. Hold home insulin given she is not eating; use correction scale and accuchecks Daughter reports patient has DO NOT RESUSCITATE CODE STATUS; discussed that she may improve with time but has many challenges destiney 10/12/17 Continue cefepime-clinically improving prior to initiation of vancomycin for positive blood culture yesterday. Culture now confirmed to be coag-negative staph, repeat cultures negative after 24+ hours--DC vancomycin. C. difficile colitis identified today-IV metronidazole initiated. Sodium/creatinine up slightly today after rate of fluids decreased yesterday, 09/22 NS increased back to 100 mL per hour-continue to monitor electrolytes. Speech therapy to evaluate tomorrow morning to determine if patient can resume oral intake given improvement in mental status. Mental status slowly improving with current treatments. 10/13/17 Speech therapy is recommended nothing by mouth; discussed with daughter/ granddaughter. Continue therapy, family is not interested in feeding tube and I've recommended against it due to advanced dementia. Continue IV fluids with addition of D5W. Diarrhea improving-continue IV Flagyl; repeat blood cultures negative-believe initial positive culture consistent with contamination.
[2017-10-13] MEDS: D5-1/2NS 1,000 ML IV SCH (22:02)
[2017-10-14] MEDS: 1/2 NS 1,000 ML IV SCH (01:59)
[2017-10-14] MEDS: CEFEPIME 1 GM in NS 100 ML IV SCH ×2 (02:34→22:47)
[2017-10-14] MEDS: MetroNIDAZOLE PB 500 MG/100 ML BAG IV SCH ×3 (03:58→19:56)
[2017-10-14] MEDS: INSULIN ASPART 100unit/ml INJECTION SQ PRN ×3 (08:12→22:20)
[2017-10-14] MEDS: INSULIN GLARGINE 100unit/ml INJECTION SQ SCH ×3 (12:18→22:21)
[2017-10-14] MEDS: D5-1/2NS 1,000 ML IV SCH (14:05)
--- NOTE | 2017-10-14 15:33 | Progress Note ---
- Date 10/14/17 Subjective: Nahed is seen today in follow up. She is sleeping and will briefly open her eyes however will not make eye contact or verbally respond. She continues on 2 liters of oxygen and is noted to have some expiratory course breath sounds. She does not appear to be in any pain or distress. Chart reviewed. BP this morning 163/75. Objective Vital signs: Temperature 97.6 F 10/14/17 01:00 Pulse Rate 85 10/14/17 09:00 Respiratory Rate 22 10/14/17 09:00 Blood Pressure 163/75 H 10/14/17 09:00 Pulse Oximetry 99 10/14/17 09:00 Height/Weight/BMI: Weight 90.5 kg - Constitutional Present: no acute distress, well nourished, well developed - Routine HEENT Exam Eye: Present: EOMI ENT: Present: mucous membranes moist, dentition normal - Routine Respiratory Exam Absent: wheezes Comments: Course breath sounds - Routine Cardiovascular Exam Present: RRR, S1, S2. Absent: murmur - Routine Abdominal Exam Present: soft, normoactive bowel sounds, non distended. Absent: tenderness - Routine Extremities Exam Present: edema (bilateral lower ext) - Routine Skin Exam Present: intact, dry, warm - Routine Neurological Exam Present: alert, altered mental status - Routine Lymphatic Exam Lymphatic: Absent: adenopathy - Routine Psychiatric Exam Present: cooperative Results - Labs CBC & Chem 7: 10/13/17 04:31 10/14/17 04:36 Microbiology Results: Microbiology 10/11/17 08:47 Peripheral/Iv Start Blood Culture - Preliminary No Growth After 3 Days 10/11/17 08:48 Peripheral/Iv Start Blood Culture - Preliminary No Growth After 3 Days Assessment and Plan (1) Acute respiratory failure with hypoxia Current visit: Yes Status: Acute Assessment and Plan: Assessment Acute encephalopathy, likely due to sepsis and underlying dementia Advanced dementia per discussion with family Severe sepsis: SIRS criteria leukocytosis (17.5), tachycardia (118), tachypnea , Cr>2. Possible pulmonary or sinus source of infection. --> 1/2 BC [employer]INTE[employer]CE from admission, repeat cultures negative --> Leukocytosis improving with cefepime, afebrile Acute respiratory failure with hypoxia C. difficile colitis-10/12/17, IV metronidazole started 10/12 Dehydration; Na 151 at admit Hyperkalemia (5.4) present on admission, improved Hypernatremia (151) present on admission Acute kidney injury w/ CKD; cr trending down with IVF administration; 1.3 today Dysphasia Hypertension Diabetes mellitus, type II-on chronic insulin History of Beverley king (2016)-chronic anticoagulation (Xarelto) Normocytic anemia, otherwise unspecified Hypothyroidism Anxiety Osteoarthritis Plan Continue cefepime for coag-negative staph, repeat cultures negative on 10/11. Continue on Flagyl for treatment of C. difficile colitis identified on 10/12 metronidazole initiated. Speech therapy has recommended nothing by mouth given diminished swallow. BGM have been elevated, Fasting was 243. Continue on BID Lantus and sliding scale Novolog. Continued encephalopathy which is likely multifactorial- Dementia, Acute illness. Prognosis poor given inability to take PO intake. May consider Palliative care. DVT Prophylaxis: SCD's Resuscitation Status: Do Not Resuscitate - Time spent with patient Time with patient PN: other (40 minutes) Coordination of Care: >50% of visit spent providing counseling/coordination of care - Physician Narrative Physician: Alisa Beal MD Narrative: Date: 10/14/17 Time: 2044 I have independently evaluated and examined this patient. I reviewed the chart, the patient's history, and the COMMUNITY ASSOCIATE/PA's documented findings as above. We discussed and formulated the assessment and plan as above with additions as below: Nahed was seen late in the afternoon; her daughter was again present and didn't think that the patient was quite as alert today although Nahed was able to tell me that she felt fine. She would answer a direct question but did not volunteer any information as she apparently did yesterday when her daughter spoke with her. She again failed swallow trials with speech therapy this morning. Her daughter favors palliative approach and is leaning toward hospice. She plans to talk to a friend who works with the hospice agency. Nahed did not respond when asked if she was hungry but has not asked for any food or water. The patient appears comfortable and responds verbally occasionally but not consistently, she is awake. Respirations are slightly coarse audibly Abdomen is soft and nontender on palpation Date 3 metronidazole-options for treatment if patient returns to [facility] with hospice were reviewed with Miranda, would likely metronidazole and give with a bite of applesauce or pudding. Day 5 cefepime for aspiration; oxygenating well. Repeat chest x-ray in a.m.-can likely discontinue antibiotics especially given risk of aggravating GI complications. Blood sugars remain quite elevated after resuming half dose basal insulin yesterday-increase Lantus to 40 units twice a day starting tonight. Hospital Course Summary Disclaimer: The visit summary below is not to be considered part of the above Progress Note. Hospital Course: Assessment Acute respiratory failure with hypoxia Acute encephalopathy Dehydration Hyperkalemia (5.4) present on admission Hypernatremia (151) present on admission Possible sepsis: SIRS criteria leukocytosis (17.5) and tachycardia (118). Possible pulmonary or sinus source of infection. Acute kidney injury w/ CKD Hypertension Diabetes mellitus, type II-on chronic insulin History of Beverley king (2016)-chronic anticoagulation (Xarelto) Normocytic anemia, otherwise unspecified Hypothyroidism Anxiety Osteoarthritis 10/09/17 - Hospital admission Admit, inpatient status to the medical floor under the hospitalist service, Dr. Beal attending. Given her altered mental status, hypoxia, and multiple comorbidities expect her stay to exceed 2 overnights. Cefepime 1 g IV was given in the ER-continue bid (adjusted for renal dysfct). Respiratory panel negative. Received 1 L of normal saline in ER. In light of her hypernatremia, will start half normal saline to run at 150 cc/h. Hold home insulin given she is not eating. Sliding scale. Accu-Cheks. Daughter reports patient has DO NOT RESUSCITATE CODE STATUS. On dismissal, patient will return to [facility] and Dr. Rizvi will resume care. 10/10/17 Continue cefepime and monitor for fevers, clinical changes. May add vancomycin tomorrow if not improved significantly. Given her altered mental status, hypoxia, and multiple comorbidities expect her stay to exceed 2 overnights. Renal function panel, CBC, Mg in AM for surveillance. Change fluids to D51/2NS @ 100 cc/hour. Hold home insulin given she is not eating; use correction scale and accuchecks. Daughter reports patient has DO NOT RESUSCITATE CODE STATUS Follow pending blood cultures Repeat CXR in AM for surveillance now that she has had adequate volume resuscitation 10/11/17 Continue cefepime and start vancomycin for MRSA coverage although unlikely given improvements with cefepime. Monitor further cultures as resulted; redraw surveillance cultures today Renal function panel, CBC, Mg in AM for surveillance. Change fluids to 1/2NS @ 50 cc/hour and stop dextrose, monitor blood sugars. Hold home insulin given she is not eating; use correction scale and accuchecks Daughter reports patient has DO NOT RESUSCITATE CODE STATUS; discussed that she may improve with time but has many challenges currenlty 10/12 Continue cefepime-clinically improving prior to initiation of vancomycin for positive blood culture yesterday. Culture now confirmed to be coag-negative staph, repeat cultures negative after 24+ hours--DC vancomycin. C. difficile colitis identified today-IV metronidazole initiated. Sodium/creatinine up slightly today after rate of fluids decreased yesterday, 09/22 NS increased back to 100 mL per hour-continue to monitor electrolytes. Speech therapy to evaluate tomorrow morning to determine if patient can resume oral intake given improvement in mental status. Mental status slowly improving with current treatments. 10/13 Speech therapy is recommended nothing by mouth; discussed with daughter/ granddaughter. Continue therapy, family is not interested in feeding tube and I've recommended against it due to advanced dementia. Continue IV fluids with addition of D5W. Diarrhea improving-continue IV Flagyl; repeat blood cultures negative-believe initial positive culture consistent with contamination. 10/14 Continue cefepime for coag-negative staph, repeat cultures negative on 10/11. Continue on Flagyl for treatment of C. difficile colitis identified on 10/12 metronidazole initiated. Speech therapy has recommended nothing by mouth given diminished swallow. BGM have been elevated, Fasting was 243. Continue on BID Lantus and sliding scale Novolog. Continued encephalopathy which is likely multifactorial- Dementia, Acute illness. Prognosis poor given inability to take PO intake. May consider Palliative care.
[2017-10-15] MEDS: MetroNIDAZOLE PB 500 MG/100 ML BAG IV SCH ×3 (05:02→16:03)
[2017-10-15] MEDS: INSULIN ASPART 100unit/ml INJECTION SQ PRN ×4 (06:08→20:35)
[2017-10-15] MEDS: CEFEPIME 1 GM in NS 100 ML IV SCH ×3 (07:41→22:43)
[2017-10-15] MEDS: INSULIN GLARGINE 100unit/ml INJECTION SQ SCH ×2 (08:53→20:36)
--- NOTE | 2017-10-15 09:01 | XRay Report ---
EXAM: XR chest 1V COMPARISON: 10/11/2017. 10/09/2017. 06/05/2010. 11/30/2008. HISTORY: aspiration pneumonia . FINDINGS:There is interval improvement in the ill-defined opacity at left lung base which may represent improving infiltrate. The heart is enlarged. The pulmonary vascularity appears unremarkable. There is minimal blunting of the left costophrenic angle. There is no evidence for a pneumothorax. Mild AC joint arthrosis is noted. IMPRESSION: 1. Cardiomegaly. 2. Interval improvement in the ill-defined opacity at the left lung base which may represent an improving infiltrate. Clinical correlation is suggested. LOCATION [facility] DICTATION: [facility] [place] .
[2017-10-15] MEDS: LIDOCAINE 1% INJ 10 MG, POTASSIUM CHLORIDE INJ 10 MEQ in NS 100 ML IV SCH ×4 (11:27→14:31)
--- NOTE | 2017-10-15 11:48 | Progress Note ---
- Date 10/15/17 Subjective: Nahed was resting comfortably in bed, eyes open. She smiled but did not respond verbally. She followed commands inconsistently - ie was able to open her mouth upon request. No family was at bedside but in discussion with RN they've requested re-eval by speech therapy and understand the risk of aspiration. Hospice is being considered. Objective Vital signs: Temperature 97.5 F 10/15/17 09:19 Pulse Rate 92 10/15/17 09:19 Respiratory Rate 22 10/15/17 09:19 Blood Pressure 143/67 H 10/15/17 09:19 Pulse Oximetry 97 10/15/17 09:19 Height/Weight/BMI: Weight 90.1 kg - Constitutional Present: no acute distress, well nourished, well developed - Routine HEENT Exam Head: Present: normocephalic Eye: Absent: conjunctival icterus, scleral injection ENT: Present: mucous membranes dry. Absent: dentition normal - Routine Respiratory Exam Present: CTA bilaterally - Routine Cardiovascular Exam Present: RRR, S1, S2 - Routine Abdominal Exam Present: soft, normoactive bowel sounds, non distended, non tender - Routine Extremities Exam Present: no edema, pulses intact Comments: foam boots b/l - Routine Skin Exam Present: intact, dry, warm - Routine Neurological Exam Present: alert - Routine Psychiatric Exam Present: unable to assess Results - Labs CBC & Chem 7: 10/15/17 05:04 10/15/17 05:04 Microbiology Results: Microbiology 10/11/17 08:48 Peripheral/Iv Start Blood Culture - Preliminary No Growth After 4 Days 10/11/17 08:47 Peripheral/Iv Start Blood Culture - Preliminary No Growth After 4 Days Assessment and Plan (1) Acute respiratory failure with hypoxia Current visit: Yes Status: Acute Assessment and Plan: Assessment Acute encephalopathy, likely due to sepsis and underlying dementia Advanced dementia per discussion with family Severe sepsis: SIRS criteria leukocytosis (17.5), tachycardia (118), tachypnea , Cr>2. Possible pulmonary or sinus source of infection. 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 difficile colitis-10/12/17, IV metronidazole started 10/12 Dehydration; Na 151 at admit Hyperkalemia (5.4) present on admission --> now hypokalemic Hypernatremia (151) present on admission Acute kidney injury w/ CKD; cr trending down with IVF administration; 1.3 today Dysphasia Hypertension Diabetes mellitus, type II-on chronic insulin History of A. (2015)-chronic anticoagulation (Xarelto) Normocytic anemia, otherwise unspecified Hypothyroidism Anxiety Osteoarthritis Plan Hypokalemia - IV bolus ordered d/t dysphagia. Mg stable at 1.7. Continue cefepime for coag-negative staph, repeat cultures negative on 10/11. Continue on Flagyl for treatment of C. difficile colitis identified on 10/12 metronidazole initiated. Speech therapy to re-evaluate. Per CM, family is considering [facility]. Arturo Family agree for [facility] care in the outpatient setting. Not appropriate for inpatient hospice at this time. DVT Prophylaxis: SCD's Resuscitation Status: Do Not Resuscitate - Time spent with patient Time with patient PN: 25 minutes - Physician Narrative Physician: Virgilio Morris MD Narrative: Date: 10/15/17 Time: 1854 Have independently interviewed and examined pt. Chart reviewed. Case discussed with my [employer] and [facility] nurse. Care plan developed with my supervision; agree with above. Resting in bed, opens eyes to verbal stimuli. Oral drive extremely poor, very weak swallow. Family met with Hospice and agreed to sign on to [facility] at discharge. Lungs: decreased, upper airway noises. CV: regular MSE: awake alert, non- verbal Plan: IV potassium replacement today. Anticipate discharge tomorrow with hospice care. Will need Rx for MS, lorazepam, and Levsin. Hospice is asking for speech recommendations for oral intake - will discuss with speech. Do feel hospice appropriate. Hospital Course Summary Disclaimer: The visit summary below is not to be considered part of the above Progress Note. Hospital Course: Assessment Acute respiratory failure with hypoxia Acute encephalopathy Dehydration Hyperkalemia (5.4) present on admission Hypernatremia (151) present on admission Possible sepsis: SIRS criteria leukocytosis (17.5) and tachycardia (118). Possible pulmonary or sinus source of infection. Acute kidney injury w/ CKD Hypertension Diabetes mellitus, type II-on chronic insulin History of AJaren (2015)-chronic anticoagulation (Xarelto) Normocytic anemia, otherwise unspecified Hypothyroidism Anxiety Osteoarthritis 10/09/17 - Hospital admission Admit, inpatient status to the medical floor under the hospitalist service, Dr. Beal attending. Given her altered mental status, hypoxia, and multiple comorbidities expect her stay to exceed 2 overnights. Cefepime 1 g IV was given in the ER-continue bid (adjusted for renal dysfct). Respiratory panel negative. Received 1 L of normal saline in ER. In light of her hypernatremia, will start half normal saline to run at 150 cc/h. Hold home insulin given she is not eating. Sliding scale. Accu-Cheks. Daughter reports patient has DO NOT RESUSCITATE CODE STATUS. On dismissal, patient will return to [facility] and Dr. Rizvi will resume care. 10/10/17 Continue cefepime and monitor for fevers, clinical changes. May add vancomycin tomorrow if not improved significantly. Given her altered mental status, hypoxia, and multiple comorbidities expect her stay to exceed 2 overnights. Renal function panel, CBC, Mg in AM for surveillance. Change fluids to D51/2NS @ 100 cc/hour. Hold home insulin given she is not eating; use correction scale and accuchecks. Daughter reports patient has DO NOT RESUSCITATE CODE STATUS Follow pending blood cultures Repeat CXR in AM for surveillance now that she has had adequate volume resuscitation 10/11/17 Continue cefepime and start vancomycin for MRSA coverage although unlikely given improvements with cefepime. Monitor further cultures as resulted; redraw surveillance cultures today Renal function panel, CBC, Mg in AM for surveillance. Change fluids to 1/2NS @ 50 cc/hour and stop dextrose, monitor blood sugars. Hold home insulin given she is not eating; use correction scale and accuchecks Daughter reports patient has DO NOT RESUSCITATE CODE STATUS; discussed that she may improve with time but has many challenges destiney 10/12 Continue cefepime-clinically improving prior to initiation of vancomycin for positive blood culture yesterday. Culture now confirmed to be coag-negative staph, repeat cultures negative after 24+ hours--DC vancomycin. C. difficile colitis identified today-IV metronidazole initiated. Sodium/creatinine up slightly today after rate of fluids decreased yesterday, 2 NS increased back to 100 mL per hour-continue to monitor electrolytes. Speech therapy to evaluate tomorrow morning to determine if patient can resume oral intake given improvement in mental status. Mental status slowly improving with current treatments. 10/13 Speech therapy is recommended nothing by mouth; discussed with daughter/ granddaughter. Continue therapy, family is not interested in feeding tube and I've recommended against it due to advanced dementia. Continue IV fluids with addition of D5W. Diarrhea improving-continue IV Flagyl; repeat blood cultures negative-believe initial positive culture consistent with contamination. 10/14 Continue cefepime for coag-negative staph, repeat cultures negative on 10/11. Continue on Flagyl for treatment of C. difficile colitis identified on 10/12 metronidazole initiated. Speech therapy has recommended nothing by mouth given diminished swallow. BGM have been elevated, Fasting was 243. Continue on BID Lantus and sliding scale Novolog. Continued encephalopathy which is likely multifactorial- Dementia, Acute illness. Prognosis poor given inability to take PO intake. May consider Palliative care. 10/15 Hypokalemia - IV bolus ordered d/t dysphagia. Mg stable at 1.7. Speech therapy to re-evaluate. Per CM, family is considering [facility].
[2017-10-15] MEDS: D5-1/2NS 1,000 ML IV SCH (14:31)
[2017-10-16] MEDS: MetroNIDAZOLE PB 500 MG/100 ML BAG IV SCH ×2 (00:40→08:10)
[2017-10-16] MEDS: INSULIN ASPART 100unit/ml INJECTION SQ PRN ×2 (06:34→11:04)
[2017-10-16] MEDS: D5-1/2NS 1,000 ML IV SCH ×2 (08:07→08:11)
[2017-10-16] MEDS: INSULIN GLARGINE 100unit/ml INJECTION SQ SCH (08:09)
[2017-10-16 08:15] VITALS: BP 151/71; PULSE 90; RESP 18; TEMP 97.5; O2SAT 95
--- NOTE | 2017-10-16 09:25 | Progress Note ---
- Date 10/16/17 Subjective: F/U: Acute respiratory failure with hypoxia Resting in bed. Not waking to verbal stimuli. Looking comfortable. Objective Vital signs: Temperature 97.5 F 10/16/17 08:14 Pulse Rate 90 10/16/17 08:14 Respiratory Rate 18 10/16/17 08:14 Blood Pressure 151/71 H 10/16/17 08:14 Pulse Oximetry 95 10/16/17 08:14 Height/Weight/BMI: Weight 90.1 kg - Constitutional Present: well nourished, well developed, obese, somnolent - Routine HEENT Exam Head: Present: normocephalic, atraumatic ENT: Present: mucous membranes moist - Routine Respiratory Exam Present: decreased breath sounds, wheezes (Faint, scattered ). Absent: respiratory distress - Routine Cardiovascular Exam Present: RRR, no murmur - Routine Abdominal Exam Present: soft, non distended, non tender. Absent: normoactive bowel sounds ( Decreased ) - Routine Extremities Exam Absent: cyanosis, clubbing - Routine Musculoskeletal Exam Musculoskeletal: Absent: no clubbing or cyanosis - Routine Skin Exam Present: dry, warm - Routine Neurological Exam Somnolent - Routine Psychiatric Exam Comments: Somnolent Results - Labs CBC & Chem 7: 10/16/17 04:26 10/16/17 04:26 Microbiology Results: Microbiology 10/11/17 08:47 Peripheral/Iv Start Blood Culture - Final No Growth After 5 Days 10/11/17 08:48 Peripheral/Iv Start Blood Culture - Final No Growth After 5 Days Assessment and Plan (1) Acute respiratory failure with hypoxia Current visit: Yes Status: Acute Assessment and Plan: Assessment Acute encephalopathy, likely due to sepsis and underlying dementia Advanced dementia per discussion with family Severe sepsis: SIRS criteria leukocytosis (17.5), tachycardia (118), tachypnea , Cr>2. Possible pulmonary or sinus source of infection. 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 difficile colitis-10/12/17, IV metronidazole started 10/12 Dehydration; Na 151 at admit Hyperkalemia (5.4) present on admission --> now hypokalemic Hypernatremia (151) present on admission Acute kidney injury w/ CKD; cr trending down with IVF administration; 1.2 today Dysphasia Hypertension Diabetes mellitus, type II-on chronic insulin History of Beverley osborn (2015)-chronic anticoagulation (Xarelto) Normocytic anemia, otherwise unspecified Hypothyroidism Anxiety Osteoarthritis Plan Family did agree with initiation of hospice care with [facility]. Symptom control medications: Roxanol, lorazepam, and Levsin. Will stop all oral medications (other than metronidazole) due to severe swallow disfunction. Stop insulins and blood sugar monitoring. Code status: DNR. [facility] to initiate care upon patient's arrival to [facility]. Condition is terminal - severe dysphagia secondary to advanced dementia. Life expectancy days to weeks. See orders for details. DVT Prophylaxis: SCD's Resuscitation Status: Do Not Resuscitate - Physician Narrative Physician: Virgilio Morris MD Narrative: Date: 10/16/17 Time: 921 Hospital Course Summary Disclaimer: The visit summary below is not to be considered part of the above Progress Note. Hospital Course: Assessment Acute respiratory failure with hypoxia Acute encephalopathy Dehydration Hyperkalemia (5.4) present on admission Hypernatremia (151) present on admission Possible sepsis: SIRS criteria leukocytosis (17.5) and tachycardia (118). Possible pulmonary or sinus source of infection. Acute kidney injury w/ CKD Hypertension Diabetes mellitus, type II-on chronic insulin History of Beverley king (2015)-chronic anticoagulation (Xarelto) Normocytic anemia, otherwise unspecified Hypothyroidism Anxiety Osteoarthritis 10/09/17 - Hospital admission Admit, inpatient status to the medical floor under the hospitalist service, Dr. Beal attending. Given her altered mental status, hypoxia, and multiple comorbidities expect her stay to exceed 2 overnights. Cefepime 1 g IV was given in the ER-continue bid (adjusted for renal dysfct). Respiratory panel negative. Received 1 L of normal saline in ER. In light of her hypernatremia, will start half normal saline to run at 150 cc/h. Hold home insulin given she is not eating. Sliding scale. Accu-Cheks. Daughter reports patient has DO NOT RESUSCITATE CODE STATUS. On dismissal, patient will return to [facility] and care and Dr. Rizvi will resume care. 10/10/17 Continue cefepime and monitor for fevers, clinical changes. May add vancomycin tomorrow if not improved significantly. Given her altered mental status, hypoxia, and multiple comorbidities expect her stay to exceed 2 overnights. Renal function panel, CBC, Mg in AM for surveillance. Change fluids to D51/2NS @ 100 cc/hour. Hold home insulin given she is not eating; use correction scale and accuchecks. Daughter reports patient has DO NOT RESUSCITATE CODE STATUS Follow pending blood cultures Repeat CXR in AM for surveillance now that she has had adequate volume resuscitation 10/11/17 Continue cefepime and start vancomycin for MRSA coverage although unlikely given improvements with cefepime. Monitor further cultures as resulted; redraw surveillance cultures today Renal function panel, CBC, Mg in AM for surveillance. Change fluids to 1/2NS @ 50 cc/hour and stop dextrose, monitor blood sugars. Hold home insulin given she is not eating; use correction scale and accuchecks Daughter reports patient has DO NOT RESUSCITATE CODE STATUS; discussed that she may improve with time but has many challenges valentínenltliliana 10/12 Continue cefepime-clinically improving prior to initiation of vancomycin for positive blood culture yesterday. Culture now confirmed to be coag-negative staph, repeat cultures negative after 24+ hours--DC vancomycin. C. difficile colitis identified today-IV metronidazole initiated. Sodium/creatinine up slightly today after rate of fluids decreased yesterday, 09/22 NS increased back to 100 mL per hour-continue to monitor electrolytes. Speech therapy to evaluate tomorrow morning to determine if patient can resume oral intake given improvement in mental status. Mental status slowly improving with current treatments. 10/13 Speech therapy is recommended nothing by mouth; discussed with daughter/ granddaughter. Continue therapy, family is not interested in feeding tube and I've recommended against it due to advanced dementia. Continue IV fluids with addition of D5W. Diarrhea improving-continue IV Flagyl; repeat blood cultures negative-believe initial positive culture consistent with contamination. 10/14 Continue cefepime for coag-negative staph, repeat cultures negative on 10/11. Continue on Flagyl for treatment of C. difficile colitis identified on 10/12 metronidazole initiated. Speech therapy has recommended nothing by mouth given diminished swallow. BGM have been elevated, Fasting was 243. Continue on BID Lantus and sliding scale Novolog. Continued encephalopathy which is likely multifactorial- Dementia, Acute illness. Prognosis poor given inability to take PO intake. May consider Palliative care. 10/15 Hypokalemia - IV bolus ordered d/t dysphagia. Mg stable at 1.7. Speech therapy to re-evaluate. Per CM, family is considering [facility] hospice. 10/16 Family did agree with initiation of hospice care with [facility]. Symptom control medications: Roxanol, lorazepam, and Levsin. Will stop all oral medications (other than metronidazole) due to severe swallow disfunction. Stop insulins and blood sugar monitoring. Code status: DNR. [facility] to initiate care upon patient's arrival to [facility]. Condition is terminal - severe dysphagia secondary to advanced dementia. Life expectancy days to weeks. See orders for details.
[2017-10-16] MEDS: CEFEPIME 1 GM in NS 100 ML IV SCH (11:04)
--- NOTE | 2017-10-16 12:22 | Discharge Summary ---
Discharge Information Date of admission: 10/09/17 15:38 Anticipated date of discharge: 10/16/17 Attending Physician: Virgilio Morris MD Primary care physician: Whitney Rizvi DO - Discharge Diagnosis (1) Acute respiratory failure with hypoxia Status: Acute DISCHARGE DIAGNOSES Acute encephalopathy, likely due to sepsis and underlying dementia Advanced dementia per discussion with family Severe sepsis: SIRS criteria leukocytosis (17.5), tachycardia (118), tachypnea , Cr>2. 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 difficile colitis-10/12/17, IV metronidazole started 10/12 Dehydration; Na 151 at admit Hyperkalemia (5.4) present on admission --> now hypokalemic Hypernatremia (151) present on admission Acute kidney injury w/ CKD; cr trending down with IVF administration; 1.2 today COMORBIDITIES Dysphasia Hypertension Diabetes mellitus, type II-on chronic insulin History of Beverley king (2016)-chronic anticoagulation (Xarelto) Normocytic anemia, otherwise unspecified Hypothyroidism Anxiety Osteoarthritis - Procedures Procedures: Insertion of Noel catheter. - Laboratory Labs: 10/16/17 04:26 10/16/17 04:26 - Microbiology Microbiology 10/10/17 Blood Culture - Coag Negative Staphylococcus 10/10/17 Blood Culture - Final; No Growth After 5 Days 10/11/17 Blood Culture - Final; No Growth After 5 Days 10/11/17 Blood Culture - Final; No Growth After 5 Days - Radiology Radiology: CHEST X-RAYS 10/09/17 IMPRESSION: Stable appearance of the chest without acute cardiopulmonary disease. 10/11/17 IMPRESSION: Slight increase in the markings in the left base which could represent some either early infiltrate or atelectasis. 10/15/17 IMPRESSION: Interval improvement in the ill-defined opacity at the left lung base which may represent an improving infiltrate. Clinical correlation is suggested. CT HEAD 10/09/17 FINDINGS: Mild generalized atrophy. The ventricles are of normal size, shape, and contour for the patient's age. Chronic appearing left caudate lacunar infarct. There are scattered areas of low attenuation in the white matter which most likely represent changes from chronic microvascular ischemia. The brainstem , cerebellum, and cerebral hemispheres otherwise have a normal morphology and CT attenuation. There is no evidence of midline displacement. No hemorrhage, signs of acute territorial stroke, mass effect, mass lesions, or edema is evident. The visualized portions of the skull base, midface, and calvarium demonstrate no abnormality. Sinus disease with air-fluid level in the left sphenoid sinus. The tympanic and mastoid cavities appear normal. IMPRESSION: No acute intracranial abnormality or hemorrhage. Possible acute sinusitis. History of Present Illness HPI: Nahed is an 87-year-old resident at [facility]. For the past few days she has been less responsive and has had a cough. Today, when patient was mostly unresponsive, EMS was called and patient was brought to [place] emergency room. Nursing staff reports there has been a lot of respiratory illness at the home. Daughter reports patient was sick the end of August, but after several days of antibiotics, she was much better. Daughter reports that definitely over the past 2 days her mother has been less and less responsive. On admission to ER, patient was found to be hypoxic with oxygen sat of 88% on room air. She was tachycardic and had a fever 99.8. Head CT showed no acute intracranial abnormality or hemorrhage, but did show possible acute sinusitis. Chest x-ray was essentially negative, no sign of pneumonia or pulmonary congestion. Her white blood cell count was elevated at 17.5 with 2% bands. Sodium is elevated at 151 and potassium is elevated at 5.4. She has chronic kidney disease, but creatinine is elevated above baseline at 2.1. (Baseline approximately 1.3.) Negative for influenza. Urinalysis essentially negative. Following evaluation in the emergency room, hospitalist service was contacted and patient was admitted inpatient to the CCU. Objective Vital signs: Temperature 97.5 F 10/16/17 08:14 Pulse Rate 90 10/16/17 08:14 Respiratory Rate 18 10/16/17 08:14 Blood Pressure 151/71 H 10/16/17 08:14 Pulse Oximetry 95 10/16/17 08:14 Height/Weight/BMI: Weight 90.1 kg Hospital Course This is a general summary of the patient's hospital course. For more details refer to the complete medical record. Hospital course: 10/09/17 - Hospital admission Admit, inpatient status to the medical floor under the hospitalist service, Dr. Beal attending. Cefepime 1 g IV was given in the ER-continue bid. Respiratory panel negative. Received 1 L of normal saline in ER. In light of her hypernatremia, will start half normal saline to run at 150 cc/h. Hold home insulin given she is not eating. Sliding scale. Accu-Cheks. DO NOT RESUSCITATE CODE STATUS. 10/10/17 Na 151 --> 147. Change fluids to D51/2NS @ 100 cc/hour. Continued supportive care. 10/11/17 Continued cefepime and started vancomycin for MRSA coverage. Early growth on blood cultures. Na 146; Changed fluids to 1/2NS @ 50 cc/hour and stop dextrose, monitor blood sugars. 10/12/17 Coag-negative staph on blood culture -- DC vancomycin. C. difficile colitis identified today-IV metronidazole initiated. Sodium/creatinine up slightly today after rate of fluids decreased yesterday, 09/22 NS increased back to 100 mL per hour. Mental status slowly improving with current treatments. 10/13/17 Speech therapy recommended NPO. Family is not interested in feeding tube and I' ve recommended against it due to advanced dementia. Continue IV fluids with addition of D5W. Repeat blood cultures negative-believe initial positive culture consistent with contamination. 10/14/17 Continue cefepime for coag-negative staph, Flagyl for treatment of C. difficile colitis identified on 10/12 metronidazole initiated. Prognosis poor given inability to take PO intake. Consider Palliative care. 10/15/17 Hypokalemia (3.1) - IV bolus ordered d/t dysphagia. Mg stable at 1.7. Speech therapy to re-evaluate. Per CM, family is considering [facility]. 10/16/17 - Hospital discharge Family agreed with initiation of hospice care with [facility]. Symptom control medications: Roxanol, lorazepam, and Levsin. Stop all oral medications (other than metronidazole) due to severe swallow disfunction. Stop insulins and blood sugar monitoring. Code status: DNR. [facility] to initiate care upon patient's arrival to [facility]. Noel left in place for comfort but family may opt to discontinue this in the future. Condition is terminal - severe dysphagia secondary to advanced dementia. Life expectancy days to weeks. See orders for details. Time spent with patient: discharge greater than 30 minutes Resuscitation Status: Do Not Resuscitate Discharge Plan - Discharge Disposition Disposition: 50 Discharged To Hospice-Home *Condition: Stable Reason For Visit (Visit label in EMR): unresponsive,hypoxia, cough - Discharge Medications *Discharge Medications: New LORazepam [Ativan] 0.5 mg SL Q4HR PRN #20 tab PRN Reason: Anxiety/Air Hunger/Agitation metroNIDAZOLE [Metronidazole] 500 mg PO TID #27 tab Morphine Sulfate Oral Liq [Roxanol Oral Liq] 5 mg SL Q2HR PRN #30 ml PRN Reason: Anxiety/Air Hunger/Agitation Hyoscyamine [Levsin] 0.125 mg SL Q4HR PRN #10 tab PRN Reason: Secretions Continue Dextran 70/Hypromellose [Artificial Tears Eye Drops] 1 drop BOTH EYES PRN PRN #15 ml PRN Reason: Dry Eyes Sodium Chloride [Saline Nasal Mist] 1 spray VANNESSA PRN PRN PRN Reason: Nasal Congestion Budesonide Inhalation [Pulmicort Inhalation] 0.5 mg INH PRN PRN PRN Reason: Shortness Of Air/Wheezing Glucagon [Glucagen] 1 mg IM PRN PRN PRN Reason: Prn Orders Albuterol/Ipratropium [Duoneb] 3 ml AEROSOL Q4H PRN PRN Reason: Shortness Of Air/Wheezing Discontinued Atorvastatin [Lipitor] 40 mg PO HS #0 Gabapentin 300 mg PO HS #0 hydroCHLOROthiazide [Hydrochlorothiazide] 25 mg PO DAILY #0 Sennosides/Docusate Sodium [Sm Senna-S Tablet] 1 tab PO BID #0 tab Insulin Glargine,Hum.rec.anlog [Lantus] 62 unit SQ BID #0 vial Insulin Lispro [HumaLOG] 60 unit SQ TIDWM Hydrocodone/APAP 7.5/325 [[place] 7.5/325] 1 tab PO Q6H PRN PRN Reason: Pain Magnesium Hydroxide [Milk of Magnesia] 30 ml PO DAILY PRN PRN Reason: Constipation guaiFENesin [Guaifenesin] 200 mg PO QID PRN PRN Reason: Cough CALCIUM CARBONATE Chewable [Tums] 500 mg PO Q4H PRN PRN Reason: Indigestion PredniSONE [Deltasone] 5 mg PO BID Potassium Chloride [Klor-Con M20] 20 meq PO BID Metoprolol Tartrate [Lopressor] 25 mg PO BIDWM Fruit Fiber 30 ml PO DAILY Thiamine [Vitamin B-1] 100 mg PO DAILY Rivaroxaban [Xarelto] 20 mg PO DAILY Trifluoperazine [Stelazine] 0.5 mg PO DAILY Psyllium [Metamucil] 6 gm PO HS Multivitamin [One Daily] 1 tab PO DAILY Losartan Potassium [Cozaar] 50 mg PO DAILY Furosemide [Lasix] 40 mg PO DAILY Duloxetine HCl 30 mg PO DAILY Cholecalciferol [Vit. D-3] 1,000 unit PO DAILY Levothyroxine Tab [Synthroid] 100 mcg PO ACB #0 Acetaminophen 650 mg PO Q4H PRN #0 tab PRN Reason: Pain /Fever Insulin Lispro [HumaLOG] 8 unit SQ PRN PRN #0 PRN Reason: Prn Orders Nitroglycerin 0.4 mg SL Q5MIN3 PRN #0 tab PRN Reason: Chest Pain Active Protein 1 packet PO BID Allopurinol [Zyloprim] 100 mg PO DAILY - Referrals/Follow Up *Referrals/Follow Up: Whitney Rizvi DO [Primary Care Provider] - (As needed for care. Patient terminal, on Hospice [facility] ) - Patient Handouts Patient Handouts: Hypoxia (GEN) - Dismissal Complete Discharge Instructions are:: Complete Physician Narrative - Narrative Physician: Virgilio Morris MD Attestation Narrative: Date: 10/16/17 Time: 0638 I have independently interviewed and examined patient prior to discharge. See my progress note from today for details. Medically stable to discharge with Hospice care.
--- NOTE | 2017-10-16 13:31 | Extended Care Facility Orders ---
<Erin Delgado - Last Filed: 10/16/17 13:29> Admission Orders Admit to:: Hospice Allergies/Adverse Reactions: Allergies Sulfa (Sulfonamide Antibiotics) Allergy (Intermediate, Verified 10/09/17 12:29) RASH JUNE Inhibitors Allergy (Unknown, Verified 10/09/17 12:29) PER 'ALLERGIES' ON [facility]-Angiotensin Receptor Antagonist Allergy (Unknown, Verified 10/09/17 12:29) Admitting Diagnosis: unresponsive,hypoxia, cough Admitting Physician: Virgilio Morris MD Attending Physician: Virgilio Morris MD Code Status: Do Not Resuscitate Anticiapted Length of Stay: 30 days or less Rehab Potential: poor Rehab Prognosis: poor Diet: HIGH RISK for aspiration. May have pureed diet with syrup thick liquids as able. Wound/Incision Care: Monitor closely for signs of skin breakdown. May use Facility Protocol or Standing Orders: Yes May have flu vaccine: Yes Intermediate Certification: I certify that SNF services are required to be given on an Inpatient basis because of the patient's need for usp care on a continuing basis for the condition(s) for which she received inpatient hospital services prior to her transfer to the SNF. SNF inpatient care is necessary for the following reasons Indication for Intermediate: Not Applicable - Additional Information In Event of Arrest: Do Not Start CPR Resident is Aware of Diagnosis: No (Advanced dementia; family understands discharge plan and diagnoses.) Referrals: Whitney Rizvi, [Primary Care Provider] - (As needed for care. Patient terminal, on [facility]ospice [facility] ) <Virgilio Morris - Last Filed: 10/16/17 13:38> Admission Orders Admitting Diagnosis: unresponsive,hypoxia, cough Admitting Physician: Virgilio Morris MD Attending Physician: Virgilio Morris MD Code Status: Do Not Resuscitate Intermediate Certification: I certify that SNF services are required to be given on an Inpatient basis because of the patients need for usp care on a continuing basis for the condition(s) for which he/she received inpatient hospital services prior to his/her transfer to the SNF. SNF inpatient care is necessary for the following reasons - Additional Information Additional Orders: Hospice care by [facility] to initiate when patient arrives at facility.
[2017-10-16] MEDS ORDERED: CEFEPIME 1 GM in NS 50 ML IV SCH (23:00)
== END 2017-10-16 14:33 | disposition hospice, home (50) | DRG 871 ==
LOC: ED 12:13 → MED 15:20 → SUATTDRO 15:38
PROVIDERS: ADMIT Internal Medicine; ATTEND Hospitalist